=== PATIENT | male | born 1940 | race Caucasian/White ===

== ENCOUNTER 2017-12-03 22:34 | Inpatient (IN) | payer MEDICARE, BC ==
[2017-12-03 23:00] LABS: #Basophils 0.1 thou/uL (0.0-0.2); #Eosinphils 0.2 thou/uL (0.0-0.7); #Monocytes 0.6 thou/uL (0.11-0.59); #Neutrophils 6.2 thou/uL (1.40-6.50); %Basophils 0.6 % (0.0-1.0); %Eosinophils 2.1 % (0.0-10.0); %Lymphocytes 22.4 % (21.0-51.0); %Monocytes 6.1 % (0.0-10.0); %Neutrophils 68.8 % (42.0-75.0); Hemoglobin 16.4 g/dL (14.0-18.0); Mean Corpuscular HGB CONC 32.9 g/dL (32.0-36.0); Mean Corpuscular Hemoglobin 31.1 pg (27.0-31.0); Mean Corpuscular Volume 94.6 fL (78.0-98.0); Platelet Count 156 thou/uL (130-400); Red Blood Cell (RBC) Count 5.27 mill/uL (4.70-6.10)
[2017-12-03 23:25] LABS: ALT (SGPT) 22 U/L (8-55); AST (SGOT) 21 U/L (5-34); Albumin 4.4 g/dL (3.4-4.8); Alkaline Phosphatase 88 U/L (40-150); Anion Gap 12 mmol/L (10-20); BUN (Urea Nitrogen) 18 mg/dL (8.4-25.7); Bilirubin, Total 0.7 mg/dL (0.2-1.2); CK (CPK) 71 U/L (30-200); Calc. Creatinine Clearance 0 mL/min (70-130); Calcium 10.4 mg/dL (7.8-10.44); Carbon Dioxide 24 mmol/L (23-31); Chloride 108 mmol/L (98-107); Estimated GFR-MDRD 50; Globulin 3.5 g/dL (2.4-3.5); Glucose 143 mg/dL (83-110); Lipase 43 U/L (8-78); Protein, Total 7.9 g/dL (5.8-8.1); Sodium 140 mmol/L (136-145)
--- NOTE | 2017-12-03 23:26 | RAD ---
PORTABLE CHEST: HISTORY: Chest pain. COMPARISON: 10/03/2010 FINDINGS: Heart size appears borderline for portable technique. Postop sternotomy changes are seen. The lungs are clear of infiltrates. Old right clavicle fracture is seen. IMPRESSION: Borderline heart size. No acute findings. Stable examination. POS: [facility]
[2017-12-03 23:29] LABS: CKMB 2.2 ng/mL (0-6.6); Troponin I Less than 0.010 ng/mL (< 0.028)
[2017-12-04 00:59] VITALS: BMI 31.3
[2017-12-04] MEDS ORDERED: Acetaminophen 325 MG TAB PO PRN (01:26)
[2017-12-04 02:12] LABS: Troponin I 0.071 ng/mL (< 0.028)
[2017-12-04 02:13] LABS: Cardiac Risk 4.1 (Less than 4.5)
[2017-12-04] MEDS ORDERED: Nitroglycerin 0.4 MG TAB (25 Tab Bottle) SL PRN (04:03)
[2017-12-04] MEDS ORDERED: Sodium Chloride 0.9% 1,000 ML IV SCH (04:15)
[2017-12-04 04:48] LABS: Troponin I 0.179 ng/mL (< 0.028)
[2017-12-04 07:56] LABS: Troponin I 0.278 ng/mL (< 0.028)
--- NOTE | 2017-12-04 08:22 | HP ---
CHIEF COMPLAINT: Chest pain. HISTORY OF PRESENT ILLNESS: Obtained from patient. This is a 77-year-old male with past medical his tory of coronary artery disease, on Xarelto, status post stent placement; diabetes mellitus, type 2; BPH; hyperlipidemia; hypertension; presenting with chest pain and left arm pain. Per the patient, he was having left arm pain, which started at around 09:23 p.m. and patient was also feeling some disco mfort in the chest and the symptoms that he was experiencing was similar to the one that he has had i n the past when he had an HI. Therefore, the patient was worried; therefore, he came to be evaluated . On evaluating the patient, the patient stated that he does not have any pain at this time and that he does not have any chest pain, shortness of breath, palpitations, abdominal pain, nausea, vomiting. REVIEW OF SYSTEMS: All other systems have been reviewed and are negative. PAST MEDICAL HISTORY: Coronary artery disease, status post stents; diabetes mellitus, type 2; hypert ension; benign prostatic hyperplasia; hyperlipidemia. PAST SURGICAL HISTORY: Coronary artery disease, status post stents; CABG, 4 vessels; tonsillectomy. FAMILY HISTORY: Reviewed and noncontributory. SOCIAL HISTORY: Patient drinks occasionally. Denies any illicit drugs. Currently, smoked tobacco. He has been smoking for 30 years. Patient smokes daily. ALLERGIES: No known drug allergies. CURRENT MEDICATIONS: The patient is on, 1. Aspirin 81 mg. 2. Isosorbide mononitrate 60 mg. 3. Lisinopril 10 mg. 4. Metoprolol 100 mg. 5. Nitroglycerin 0.4 mg. 6. Xarelto 20 mg p.o. daily. 7. Atorvastatin 40 mg. 7. Tamsulosin 0.4 mg. PHYSICAL EXAMINATION: VITAL SIGNS: Blood pressure is 143/94, pulse is 58, respiratory rate of 18, temperature of 98.7, oxy gen saturation of 97. GENERAL: The patient is alert, oriented x3, not in acute distress, able to speak in full sentences. HEENT: Normocephalic, atraumatic. Pupils are equally round and reactive to light. Extraocular move ments are intact. No scleral icterus. No conjunctival pallor. Mucous membranes are moist. NECK: Supple. Trachea is midline. No jugular venous distention. RESPIRATORY: Clear to auscultation, no wheezing or rales. No rhonchi is appreciated. CARDIAC: Positive S1 and S2, irregularly irregular. No murmurs. ABDOMEN: Obese abdomen. Soft, nontender, nondistended. No palpable masses. EXTREMITIES: Upper extremities, the patient has 5/5 upper extremity strength 5/5, 5/5 lower extremit ies strength, no edema noted in the lower extremities. Patient to have good pulses in the upper and lower extremities bilaterally. NEUROLOGIC: Cranial nerves II-XII grossly intact. No neurologic deficit noted. SKIN: Warm, dry, and intact. EKG: A 12-lead shows normal sinus rhythm with normal axis. A chest x-ray shows cardiomegaly. ED COURSE: The patient received normal saline 500, aspirin 324, and nitro 1 inch. LABORATORY DATA: WBC 9.0, hemoglobin 16.4, hematocrit 49.8, MCV of 94.6, RDW of 13, platelet count o f 156,000. Sodium of 140, potassium is 4.0, chloride is 108, carbon dioxide of 24, anion gap of 12, BUN of 18, creatinine is 1.38, glucose of 143, AST 21, ALT 22. Troponins 0.010, second set is 0.071. BNP is 120. Cholesterol 126, triglyceride 189, lipase of 43. ASSESSMENT AND PLAN: This is a 77-year-old male with a past medical history significant for, 1. Coronary artery disease, being admitted for chest discomfort with left arm pain. At this point, we ruled out acute coronary syndrome. Troponins x2 has been elevated at 0.071. We have consulted Ca rdiology. We will start patient on aspirin. We will continue him on his Xarelto and continue beta b locker and lisinopril. We will continue to monitor the patient. 2. [id number] myocardial infarction. We will continue current management. 3. Acute kidney injury, likely due to dehydration. We will have patient on gentle hydration. We wi ll continue that every morning to the patient. 4. History of coronary artery disease. We will continue patient on current medication. 5. Deep venous thrombosis and gastrointestinal prophylaxis.
[2017-12-04] MEDS ORDERED: Aspirin 325 MG TAB PO SCH (09:00)
[2017-12-04] MEDS ORDERED: Rivaroxaban 10 MG TAB PO SCH (09:00)
[2017-12-04] MEDS: Lisinopril 10 MG TAB PO SCH ×2 (13:52→21:03)
--- NOTE | 2017-12-04 14:28 | CON ---
DATE OF CONSULTATION: 12/04/2017 HISTORY OF PRESENT ILLNESS: Connor Pena is a 77-year-old white male that I initially evaluated in January 1995 and he was referred again after an abnormal treadmill in April [address] Jett. He had PVCs for many years and in April 1991 underwent treadmill testing without chest discomfort or ST segment changes and treadmill was negative. He continued to have PVCs as well as bigeminy, but no couplets or malignant arrhythmias. In 1992, he was in [place], [place] and began to have biceps pain intermittently and then had a more pronounced episode He went to [facility] in [place], [place]. He was found to have an anterior myocardial infarction. He was started on high dose nitroglycerin and given intravenous t-PA. He apparently reperfused and had a non-Q-wave myocardial infarction. From the records, it was unclear what the peak CK was. He was transferred to [facility] in [place] and was found to have a 50-70% proximal circumflex stenosis as well as a 75-94% proximal LAD stenosis. There apparently was normal wall motion; however, the cardiac catheterization report says that the ejection fraction was 7%. Probably that was a typographical error. He underwent PTCA of the proximal LAD with reduction from 80 to 30% using a 3 mm balloon and a 7-Tamazight left 4 guide catheter. When I initially saw him in 01/1995, he had started to have left arm discomfort at rest. He underwent thallium treadmill testing exercising for 9 minutes, had no chest pain or arm pain. There were no ST segment changes. Treadmill was nondiagnostic due to failure to achieve target heart rate. There was mild evidence of reversible ischemia in the inferoseptal region on the short axis; however, this did not correlate on the horizontal axis. It was felt that his pain was probably musculoskeletal in nature. In 04/1996, he was again referred for 6 months of left arm pain when trying to go to sleep and when loading firewood which would last for 5-10 minutes and be relieved with rest. He denied any nausea, vomiting or diaphoresis. Dr. Jett performed a treadmill and he developed left arm pain at the end of stage III with [address] segment depression in II, III, F, V5 and V6. Thallium revealed evidence of anterior apical and septal ischemia. Ejection fraction was 55% with hypokinesis of the septum and apex. He underwent cardiac catheterization on 05/07/1996 and was found to have a 99% mid LAD, 80% first diagonal which was a small vessel, 50-60% proximal circumflex , 50% mid RCA, 50% distal RCA. He underwent PTCA of the 99% mid LAD lesion. It was very difficult to cross the subtotally occluded mid LAD. This was dilated. The final result was 40%. It is recommended on a daily basis that he stop smoking. In 07/1995 he was not having any symptoms. In 12/1995 he occasionally would have 1-2 minutes of left arm pain with walking for 2 months. He was placed on Imdur; however, this caused a headache. He underwent Cardiolite treadmill testing and developed left arm pain at 5 minutes and had a new left bundle branch block, but no ST segment changes. Cardiolite revealed apical and septal ischemia. He underwent repeat catheterization which revealed a 99% mid LAD stenosis with faint antegrade filling and with retrograde filling from the right coronary artery. There was an 80%, small first diagonal lesion. The circumflex had a 50% lesion which was a small vessel and then a long 50% mid RCA stenosis and 50% distal RCA stenosis. There was mild anterior hypokinesis with ejection fraction of 55%. He underwent rotablader 1.2 followed by 1.75 shemar in the mid LAD followed by placement of a GRII stent. In 12/1996, Zocor dose was increased with his LDL being 91. He tried Zyban to stop smoking; however, he is uncertain if that helped. In 01/1999, he returned for stress echo testing, exercised for 9 minutes and the test was nondiagnostic due to failure to achieve target heart rate. There was no ST segment changes. He had one 3 beat run of ventricular tachycardia. Echo revealed ejection fraction of 50-55% with normal wall motion and no evidence of stress induced ischemia. Again, he was urged to stop smoking. He returned in 07/1999 complaining of 2-3 weeks of arm pain. He was in [place] and had arm pain , he went to the emergency room there. He did not have a myocardial infarction. The pain recurred with lifting a trailer into place on a hitch and lasted 1 hour. He also complained of postprandial left sternal pain. With recurrence of what sound like his angina and known 3-vessel disease, it was recommended he undergo repeat catheterization which was performed in 08/1999. He had moderate inferobasal hypokinesis with inferior hypokinesis and ejection fraction of 45-50%. There was 60% mid LAD in-stent restenosis of the GRII stent from 10/1996. There was an apical LAD 80% stenosis, 80% proximal circumflex. There was a 99% mid RCA stenosis with the distal vessel filling retrograde from the left. Right coronary was diseased at least 50% throughout its entire course. It was felt that the vessel was too severely diseased to get a good interventional result. He was seen by Dr. Traore and was told to stop smoking for 1 month prior to undergoing bypass surgery. He was placed on Wellbutrin. One month later, he returned and underwent CABG x5 on 09/27/1999. There was a BOLANOS to the LAD, saphenous vein graft to the obtuse marginal, left radial to the Ramus piggybacked onto the obtuse marginal graft, right posterior descending graft with right posterolateral graft piggybacked onto the PDA graft. In 01/2008, he was admitted after waking at 5:00 a.m. with left arm pain. He took 2 sublingual nitroglycerins with some improvement. He was transferred to a hospital in [place] for further evaluation. He had mildly elevated MB with normal troponins and was transferred here. He underwent catheterization which revealed mild anterior hypokinesis with ejection fraction of 50-55%. The LAD had a proximal aneurysmal area with 70% mid stenosis with previous site of GRII stent placement and proximal to that an 80% stenosis. The ramus had a 60% stenosis. The circumflex had a 90% stenosis of the first obtuse marginal. Right coronary was totally occluded proximally. Bypass graft revealed occluded BOLANOS to the LAD. Saphenous vein graft to the obtuse marginal was occluded in its mid portion. The anastomosis to this was the left radial to the ramus, which was patent. The right posterior descending graft was patent and piggybacked onto this with the right posterolateral graft which also was patent. Cypher 2.5 x 15 mm stent was then placed in the mid LAD with reduction of the area from 70 to 0%. PTCA was done in the obtuse marginal which was 90% reduced to 20%. He did well until 08/2010 when he awoke at 3:00 a.m. with left arm discomfort which was similar to what he previously had with his cardiac pain. He took sublingual nitroglycerin without relief and ultimately came to the hospital. He was given topical nitrates as well as sublingual nitroglycerin and the pain immediately resolved after 6-7 hours. He underwent repeat catheterization which revealed mild anterior hypokinesis with ejection fraction of 45-50%. There was a 20% left main, 30% proximal LAD. There continued to be good results from the Cypher stent in the mid LAD. There was an 80% apical LAD lesion. The ramus had a 60% lesion. The circumflex had proximal plaquing and then an 80% lesion in the first obtuse marginal which was the site of previous PTCA. The right coronary artery was totally occluded proximally. Bypass grafts revealed the BOLANOS to be occluded as before. Saphenous vein graft to the obtuse marginal was occluded after it gave off the left radial artery to the ramus, which was piggybacked onto it. The graft to the right posterior descending was patent and piggybacked on this with a graft to the right posterolateral. He underwent PTCA of the first obtuse marginal. Due to the extreme tortuosity of the proximal circumflex, a stent could not be delivered and this basically to a PTCA alone. In 09/2010, he again presented with chest pain and it was felt that he had a non-Q-wave infarction. It was felt that he probably occluded the small first obtuse marginal and that nothing further could be done for that area. In 07/2012, he had nausea, vomiting, but no chest discomfort, shortness of breath or palpitations. Due to headache, nausea, and vomiting, he went to the [facility] and was found to be in atrial fibrillation with fast ventricular response and was started on intravenous Cardizem. He was placed on Lovenox 1 mg/kg b.i.d. and p.o. Cardizem 30 mg q.6h. in [place]. He then requested to be transferred here. He did have some pauses up to 2-3 seconds. Upon arrival here, Cardizem was discontinued. He was loaded with Multaq. Metoprolol was held due to pauses. He also been started on Xarelto in [place] and that was held and he was given Lovenox due to the possibility of needing a pacemaker. On 08/13/2012 he underwent transesophageal echo by Dr. Womack and was found to have left atrial enlargement, normal mitral and aortic valves, mild mitral regurgitation, no thrombus in the left atrium or left atrial appendage, and atherosclerotic debris in the descending aorta. He underwent electrical cardioversion with 200 joules and returned to sinus rhythm. He was observed overnight and restarted on metoprolol 50 daily. When he was seen 1-2 months later. He continued to be in sinus rhythm, but he had been having hematuria. He had been taking Xarelto and Plavix, although Plavix was not listed on the discharge medications. Xarelto was stopped at that time due to the hematuria. When he returned in 03/2013, he was found to be in atrial fibrillation. We discussed various options including repeat cardioversion, other medications, radiofrequency ablation. However, he ultimately decided for anticoagulation and rate control alone. In 05/2017, his heart rate was 44 per minute. He did not have any symptoms, metoprolol was reduced to 25 mg daily. He was last seen 09/27/2017 and did not complain of any lightheadedness, dizziness, or chest pains. He has continued to deny any lightheadedness or dizziness. Yesterday he had used a zero turn mower and cut his grass and when he came inside he began to have left arm discomfort as well as pressure and weight sensation on his chest. He took a sublingual nitroglycerin and had his bring him to the emergency room. Ultimately he took 4 sublingual nitroglycerins and the pain lasted approximately 1 hour. At the present time, he is pain free. PAST MEDICAL HISTORY: Hypercholesterolemia, diabetes, hypertension, history of gynecomastia, benign prostatic hypertrophy. OPERATIONS: CABG, herniorrhaphy, deviated septum repair, removal of throat polyp, tonsillectomy. MEDICATIONS: When he was last seen include aspirin 81 at bedtime, Xarelto 20 mg daily, atorvastatin 40 at bedtime, vitamin D3 5000 daily, vitamin B12, isosorbide mononitrate 30 daily, lisinopril 10 mg q.a.m., 1/2 of a 10 mg q.p.m. , metoprolol 25 mg daily, nitroglycerin p.r.n., Flomax 0.4 daily. ALLERGIES: None. SOCIAL HISTORY: He continues to smoke 3/4 pack per day. He occasionally drinks. FAMILY HISTORY: Negative for coronary artery disease. REVIEW OF SYSTEMS: Twelve point review of systems otherwise unremarkable. PHYSICAL EXAMINATION: VITAL SIGNS: Blood pressure 134/73, pulse of 50, atrial fibrillation. HEENT: PERRL. NECK: Supple. CHEST: Clear. CARDIAC: S1 and S2 are normal, without any S3, S4 or murmurs. Carotid upstrokes normal, without bruits. ABDOMEN: Normal bowel sounds, without tenderness or organomegaly. EXTREMITIES: Revealed no clubbing, cyanosis or edema. NEUROLOGIC: Grossly intact. SKIN: Warm and dry. LABORATORY DATA: EKG reveals atrial fibrillation with slow ventricular response and right bundle branch block. CBC is unremarkable. Sodium 140, potassium 4.0, chloride 108, carbon dioxide 24, BUN 18, creatinine 1.38. Troponin I initially is normal; however, did increase to 0.278. Cholesterol 126 , triglycerides 189, HDL 31, LDL 57. BNP 120.4. IMPRESSION: 1. Prolonged episode of chest discomfort approximately 1 hour with a slight increase in troponin I. 2. Status post coronary artery bypass graft x5 with occluded graft to the obtuse marginal and the left internal mammary artery to the left anterior descending. 3. History of Cypher stent in the mid left anterior descending which was patent in 2010. 4. Chronic atrial fibrillation. 3 second pause and Metoprolol 25 qd had been stopped. 5. Hypercholesterolemia, under good control. 6. Diabetes. 7. Hypertension. 8. The patient continues to smoke. PLAN: The situation was discussed with the patient and his . It was recommended he undergo repeat cardiac catheterization. The risks were discussed including , myocardial infarction, dye reaction, vascular injury , CVA, transfusion, limb loss, renal loss, vascular injury, etc. Risk of intervention with PTCA and stent placement were discussed including , myocardial infarction, redo CABG, restenosis, stent thrombosis, vessel perforation, etc. with need for long-term anticoagulation on Xarelto, I would only place a bare metal stent. He understands the higher restenosis rate with this. Echocardiogram will also be performed to reassess left ventricular function. LARA
[2017-12-04 14:33] LABS: Troponin I 0.269 ng/mL (< 0.028)
--- NOTE | 2017-12-04 17:04 | PDOC.PN ---
- Subjective Encounter Start Date: 12/04/17 Encounter Start Time: 17:00 Subjective: f/u for NSTEMI on current ASA/Lipitor. No new CP. Plans for C -: in am. Tele showing sinus pauses earlier this am up to 3 secs. - Objective MAR Reviewed: Yes Vital Signs & Weight: Vital Signs (12 hours) Temp Pulse Resp BP BP Pulse Ox 12/04/17 15:48 97.5 F L 51 L 15 125/67 94 L 12/04/17 13:52 134/73 12/04/17 11:48 97.4 F L 50 L 20 134/73 97 12/04/17 07:46 97.5 F L 57 L 18 135/73 95 Weight Weight 230 lb 11.2 oz I&O: 12/03/17 12/04/17 12/05/17 06:59 06:59 06:59 Intake Total 829 Output Total 925 Balance -96 Result Diagrams: 12/03/17 22:55 12/03/17 22:55 Additional Labs: Laboratory Tests 12/03/17 12/03/17 12/03/17 22:55 22:55 22:55 Creatinine 1.38 H Estimated GFR (MDRD) 50 Troponin I Less than 0.010 B-Natriuretic Peptide 120.4 H Triglycerides Cholesterol LDL Cholesterol, Calc HDL Cholesterol 12/04/17 12/04/17 12/04/17 01:20 01:20 04:20 Creatinine Estimated GFR (MDRD) Troponin I 0.071 H 0.179 H B-Natriuretic Peptide Triglycerides 189 H Cholesterol 126 LDL Cholesterol, Calc 57 HDL Cholesterol 31 12/04/17 12/04/17 07:18 13:51 Creatinine Estimated GFR (MDRD) Troponin I 0.278 H 0.269 H B-Natriuretic Peptide Triglycerides Cholesterol LDL Cholesterol, Calc HDL Cholesterol Radiology Reviewed by me: Yes (PCXR - no acute infiltrate) EKG Reviewed by me: Yes (Tele - Sinus bradycardia, sinus pauses up to 3 sec) Phys Exam - Physical Examination Constitutional: NAD HEENT: PERRLA, sclera anicteric, oral pharynx no lesions Neck: no nodes, no JVD, supple, full ROM Respiratory: no wheezing, no rales, no rhonchi, clear to auscultation bilateral Cardiovascular: RRR, no significant murmur, no rub, gallop Gastrointestinal: soft, non-tender, no distention, positive bowel sounds Musculoskeletal: no edema, pulses present Neurological: non-focal, normal sensation, moves all 4 limbs Psychiatric: normal affect, A&O x 3 Skin: no rash, normal turgor, cap refill <2 seconds Dx/Plan (1) NSTEMI (non-ST elevated myocardial infarction) Code(s): I21.4 - NON-ST ELEVATION (NSTEMI) MYOCARDIAL INFARCTION Status: Acute Comment: Plan for LHC in am, continue ASA/Lipitor, Nitrates prn (2) CAD (coronary artery disease) Code(s): I25.10 - ATHSCL HEART DISEASE OF [place] CORONARY ARTERY W/O ANG PCTRS Status: Chronic Comment: s/p CABG x 5v, repeat LHC planned in am, see #1 above (3) CKD (chronic kidney disease), stage III Code(s): N18.3 - CHRONIC KIDNEY DISEASE, STAGE 3 (MODERATE) Status: Chronic Comment: Continue IVF's, avoid nephrotoxic meds and limit contrast exposure (4) HLD (hyperlipidemia) Code(s): E78.5 - HYPERLIPIDEMIA, UNSPECIFIED Status: Chronic Comment: Continue Lipitor (5) Tobacco abuse Code(s): Z72.0 - TOBACCO USE Status: Chronic Comment: Tobacco cessation resources - Plan Stable currently -: Plan for cardiac catheterization 12/05/17 -: Continue ASA/Lipitor -: Continue Metoprolol/Lisinopril -: NPO x MN * AM lab: BMP * Convert to inpatient status
[2017-12-04] MEDS ORDERED: Aspirin 81 mg Enteric Coated Tablet PO SCH (21:00)
[2017-12-04] MEDS: Atorvastatin Calcium 40 MG TAB PO SCH (21:03)
[2017-12-04] MEDS: Tamsulosin HCl 0.4 MG CAP PO SCH (21:03)
[2017-12-05 05:09] LABS: Anion Gap 11 mmol/L (10-20); BUN (Urea Nitrogen) 17 mg/dL (8.4-25.7); Calc. Creatinine Clearance 72 mL/min (70-130); Calcium 10.1 mg/dL (7.8-10.44); Carbon Dioxide 24 mmol/L (23-31); Chloride 110 mmol/L (98-107); Estimated GFR-MDRD 55; Glucose 120 mg/dL (83-110); Potassium 4.1 mmol/L (3.5-5.1); Sodium 141 mmol/L (136-145)
[2017-12-05] MEDS: Lisinopril 10 MG TAB PO SCH ×2 (05:44→21:02)
[2017-12-05] MEDS ORDERED: Sodium Chloride 0.9% 1,000 ML IV SCH (06:00)
[2017-12-05] MEDS ORDERED: Heparin 10,000 UNITS/1 ML VIAL ONE (06:42)
[2017-12-05] MEDS ORDERED: Lidocaine 1% (PF) 30 ML VIAL ONE (06:55)
[2017-12-05] MEDS ORDERED: Midazolam HCl 2 mg/2 ml Vial ONE (07:03)
[2017-12-05] MEDS ORDERED: Fentanyl 100 MCG/2 ML VIAL ONE (07:03)
[2017-12-05] MEDS ORDERED: Protamine Sulfate 50 MG/5 ML VIAL ONE (07:47)
[2017-12-05] MEDS ORDERED: Bivalirudin 250 MG VIAL ONE (07:52)
[2017-12-05] MEDS ORDERED: Clopidogrel Bisulfate 300 MG TAB ONE (08:03)
[2017-12-05] MEDS ORDERED: Adenosine 6 MG/2 ML VIAL ONE (08:22)
[2017-12-05] MEDS: Sodium Chloride 0.9% 1,000 ML IV SCH ×2 (09:49→13:42)
[2017-12-05] MEDS ORDERED: Ondansetron HCl/PF 4 MG/2 ML Vial ONE (12:12)
[2017-12-05] MEDS: Clopidogrel Bisulfate 75 MG TAB PO SCH (13:42)
[2017-12-05] MEDS ORDERED: Iopamidol 370 76% 50 ML VIAL FS ONE (15:12)
[2017-12-05] MEDS ORDERED: Iopamidol 370 76% 100 ML VIAL ONE (15:12)
--- NOTE | 2017-12-05 15:40 | EKG ---
Test Reason : POST STENT Blood Pressure : / mmHG Vent. Rate : 082 BPM Atrial Rate : 394 BPM P-R Int : 000 ms QRS Dur : 152 ms QT Int : 428 ms P-R-T Axes : 000 -30 072 degrees QTc Int : 500 ms Atrial fibrillation Left axis deviation Right bundle branch block Cannot rule out Inferior infarct , age undetermined Abnormal ECG When compared with ECG of 03-DEC-2017 22:39, (Unconfirmed) Vent. rate has increased BY 31 BPM QT has lengthened Confirmed by ADE BERNARD, DR. Tatum ([id number]) on 12/05/2017 3:40:07 PM Referred By: MEGAN Confirmed By:DR. Rc BOOKER MD
[2017-12-05] MEDS ORDERED: Mag-Al 1200 mg/1200 mg/30 ML UDCUP PO PRN (16:24)
[2017-12-05] MEDS ORDERED: Ondansetron HCl/PF 4 MG/2 ML Vial IVP PRN (16:25)
--- NOTE | 2017-12-05 16:27 | PDOC.PN ---
- Subjective Encounter Start Date: 12/05/17 Encounter Start Time: 16:20 Subjective: f/u for NSTEMI s/p LHC with BMS placement to OM. c/o some indigestion -: post-cath. - Objective MAR Reviewed: Yes Vital Signs & Weight: Vital Signs (12 hours) Temp Pulse Resp BP BP Pulse Ox 12/05/17 16:03 98 F 12/05/17 16:00 97.4 F L 88 18 132/92 H 93 L 12/05/17 05:44 132/79 Weight Weight 227 lb I&O: 12/04/17 12/05/17 12/06/17 06:59 06:59 06:59 Intake Total 1689 565 Output Total 1550 500 Balance 139 65 Result Diagrams: 12/03/17 22:55 12/05/17 04:24 Additional Labs: Laboratory Tests 12/03/17 12/03/17 12/03/17 22:55 22:55 22:55 Creatinine 1.38 H Estimated GFR (MDRD) 50 Troponin I Less than 0.010 B-Natriuretic Peptide 120.4 H Triglycerides Cholesterol LDL Cholesterol, Calc HDL Cholesterol 12/04/17 12/04/17 12/04/17 01:20 01:20 04:20 Creatinine Estimated GFR (MDRD) Troponin I 0.071 H 0.179 H B-Natriuretic Peptide Triglycerides 189 H Cholesterol 126 LDL Cholesterol, Calc 57 HDL Cholesterol 31 12/04/17 12/04/17 07:18 13:51 Creatinine Estimated GFR (MDRD) Troponin I 0.278 H 0.269 H B-Natriuretic Peptide Triglycerides Cholesterol LDL Cholesterol, Calc HDL Cholesterol Radiology Reviewed by me: Yes (2D echo - EF 45-50%) EKG Reviewed by me: Yes (Tele - A-fib in 80's) Phys Exam - Physical Examination Constitutional: NAD HEENT: PERRLA, sclera anicteric, oral pharynx no lesions Neck: no nodes, no JVD, supple, full ROM Respiratory: no wheezing, no rales, no rhonchi, clear to auscultation bilateral S1, S2 Cardiovascular: no significant murmur, no rub, irregular Gastrointestinal: soft, non-tender, no distention, positive bowel sounds Musculoskeletal: no edema, pulses present Neurological: normal sensation, moves all 4 limbs Psychiatric: A&O x 3 Skin: no rash, normal turgor, cap refill <2 seconds Dx/Plan (1) NSTEMI (non-ST elevated myocardial infarction) Code(s): I21.4 - NON-ST ELEVATION (NSTEMI) MYOCARDIAL INFARCTION Status: Acute Comment: s/p BMS to OM, dual anti-platelet therapy, Lipitor (2) CAD (coronary artery disease) Code(s): I25.10 - ATHSCL HEART DISEASE OF [place] CORONARY ARTERY W/O ANG PCTRS Status: Chronic Comment: s/p CABG x 5v, s/p BMS OM, 3 of 5 grafts patent, ASA/Plavix (3) CKD (chronic kidney disease), stage III Code(s): N18.3 - CHRONIC KIDNEY DISEASE, STAGE 3 (MODERATE) Status: Chronic Comment: Continue IVF's, avoid nephrotoxic meds and limit contrast exposure (4) HLD (hyperlipidemia) Code(s): E78.5 - HYPERLIPIDEMIA, UNSPECIFIED Status: Chronic Comment: Continue Lipitor (5) Tobacco abuse Code(s): Z72.0 - TOBACCO USE Status: Chronic Comment: Tobacco cessation resources - Plan out of bed/ambulate, DVT proph w/SCDs Stable currently -: Dual anti-platelet therapy with Plavix x 1 month -: Continue Ranexa -: OOB/ambulate -: Tobacco cessation * Maalox prn * Am lab: CBC, CMP
--- NOTE | 2017-12-05 19:24 | CCL ---
INDICATION: Prolonged chest pain. Known coronary artery disease. Slight increase in Troponin I. PROCEDURE: 1. Left heart catheterization. 2. Selective coronary arteriography. 3. Left ventriculography. 4. Bypass graft angiography. 5. Stent placement in the ramus (obtuse marginal) graft. Patient was brought to cardiac pharmacy laboratory technician and right groin was prepped and draped in usual fashion. Fentanyl 25 mg given IV as well as Versed 1 mg IV for moderate conscious sedation. Using ultrasound, a 6-Afghan sheath placed into the right femoral artery. Heparin 3000 units given. A Afghan angulated pigtail was inserted and pressures were obtained. Left ventriculogram was performed using 30 mL of contrast at 12 mL per second in an HWANG 30 degree projection. Pressures were obtained. Pigtail was removed. A 6-Afghan Scarlet left 4 followed by 6-Afghan Scarlet right 4 was used for coronary arteriography. The right 4 was used to opacify the ramus graft. The right 4 was removed and a 6-Afghan multipurpose was inserted to opacified the right coronary artery grafts. Angiomax bolus and drip were started. The patient was given 600 mg Plavix. A 6 -Afghan Scarlet right 4 guide catheter was inserted and a filter wire was placed into the ramus graft. Rebel 3.0 x 12 mm stent was then positioned and deployed. This was postdilated with a 3.5 x 8 mm NC Emerge balloon. There was OUMAR 1 flow after this. Adenosine 30 mcg and then 20 mcg was given with methodist of OUMAR 3 flow. The filter wire was secured, and removed. Final contrast injection showed excellent result. Sheath was sutured in place. Patient was transferred to PCU. RESULTS: PRESSURES: A aorta 125/79, mean 101. Left ventricle 118/5. LEFT VENTRICULOGRAM: There was mild anterior hypokinesis with ejection fraction of 55-60%. CORONARY ARTERIOGRAPHY: 1. Left main had 20% stenosis. 2. The LAD had a 20% mid LAD in-stent restenosis. There was a 60% and 80% apical LAD, 70% diagonal stenosis. 3. The ramus was totally occluded. 4. The circumflex had a 30% stenosis at the site in August 2010 PTCA. 5. Right coronary was totally occluded proximally. The mid right coronary artery filled retrograde from the left. BYPASS GRAFTS 1. The BOLANOS to the LAD was occluded (old). 2. The obtuse marginal graft was occluded distal to the ramus graft that was piggybacked onto it. There was a 70% proximal lesion. 3. The left radial artery ramus graft which was piggybacked onto the obtuse marginal graft was patent. 4. Right posterior descending graft onto the right coronary artery was patent with very small distal vessels. 5. Right posterolateral graft piggybacked onto the right posterior descending artery graft and was patent. INTERVENTION: The initial lesion was 70%. Final lesion was 0%. IMPRESSION: 1. Three-vessel coronary artery disease. 2. Three of five grafts patent. 3. Mild left ventricular dysfunction. 4. Successful bare metal stent placement in an obtuse marginal graft that had the ramus graft piggybacked onto it. [facility]
[2017-12-05] MEDS: Atorvastatin Calcium 40 MG TAB PO SCH (21:01)
[2017-12-05] MEDS: Tamsulosin HCl 0.4 MG CAP PO SCH (21:02)
[2017-12-06 05:07] LABS: #Eosinphils 0.2 thou/uL (0.0-0.7); #Lymphocytes 1.5 thou/uL (1.20-3.40); #Monocytes 0.6 thou/uL (0.11-0.59); #Neutrophils 6.1 thou/uL (1.40-6.50); %Basophils 0.5 % (0.0-1.0); %Lymphocytes 17.8 % (21.0-51.0); %Monocytes 7.1 % (0.0-10.0); %Neutrophils 72.6 % (42.0-75.0); Hemoglobin 14.6 g/dL (14.0-18.0); Mean Corpuscular Hemoglobin 31.2 pg (27.0-31.0); Mean Corpuscular Volume 94.7 fL (78.0-98.0); Mean Platelet Volume 8.1 fL (7.4-10.4); Platelet Count 126 thou/uL (130-400); RBC Distribution Width 12.7 % (11.5-14.5); Red Blood Cell (RBC) Count 4.69 mill/uL (4.70-6.10); White Blood Cell (WBC) Count 8.4 thou/uL (4.8-10.8)
[2017-12-06 05:30] LABS: ALT (SGPT) 13 U/L (8-55); AST (SGOT) 16 U/L (5-34); Albumin 3.7 g/dL (3.4-4.8); Alkaline Phosphatase 79 U/L (40-150); Anion Gap 11 mmol/L (10-20); BUN (Urea Nitrogen) 16 mg/dL (8.4-25.7); Calc. Creatinine Clearance 72 mL/min (70-130); Calcium 9.4 mg/dL (7.8-10.44); Carbon Dioxide 24 mmol/L (23-31); Chloride 110 mmol/L (98-107); Estimated GFR-MDRD 55; Globulin 2.6 g/dL (2.4-3.5); Glucose 98 mg/dL (83-110); Potassium 3.9 mmol/L (3.5-5.1); Protein, Total 6.3 g/dL (5.8-8.1); Sodium 141 mmol/L (136-145)
[2017-12-06 07:52] VITALS: TEMP 97.8
[2017-12-06] MEDS: Lisinopril 10 MG TAB PO SCH (08:29)
[2017-12-06 08:30] VITALS: BP 132/71
[2017-12-06] MEDS: Clopidogrel Bisulfate 75 MG TAB PO SCH (08:30)
--- NOTE | 2017-12-06 12:51 | DIS ---
DATE OF ADMISSION: 12/04/2017 DATE OF DISCHARGE: 12/06/2017 DISCHARGE DIAGNOSES: 1. Non-ST elevation myocardial infarction. 2. Status post bare metal stent to the obtuse marginal 12/05/2017. 3. Coronary artery disease with patent 3 of 5 grafts by left heart catheterization. 4. Chronic atrial fibrillation on anticoagulation with Xarelto. 5. Chronic kidney disease stage 3. 6. Hyperlipidemia. 7. Tobacco abuse. CONSULTATIONS: Dr. Oro with Cardiology Service. PERTINENT LABORATORY AND X-RAY FINDINGS: Troponin I ranged between 0.010-0.278. BNP 120. Total cho lesterol 126, triglycerides 189, HDL 31, LDL 57, lipase 43. CBC within normal limits. Left heart catheterization dated 12/05/2017 showed 3-vessel coronary artery disease with 3 of 5 paten t grafts. Successful PCI with bare metal stent placement to the proximal obtuse marginal graft. HOSPITAL COURSE: The patient was admitted to the telemetry unit after initially presenting with ches t pain in the context of known coronary artery disease status post coronary artery bypass grafting. The patient underwent serial cardiac enzyme evaluation showing an increasing trend, confirming eviden ce of non-ST elevation myocardial infarction. The patient was evaluated by the Cardiology Service wi recommendations for a left heart catheterization. The patient underwent the procedure on 12/06/19 18 showing patent 3 of 5 grafts; however, the patient did undergo a percutaneous coronary interventio n with placement of a bare metal stent to the proximal segment of the obtuse marginal graft. The pat ient tolerated the procedure well and postoperatively remained clinically stable with telemetry monit oring showing chronic atrial fibrillation with controlled rate. The patient was initiated on Plavix with recommendations to continue for 1 month after discharge. The patient also initiated on Ranexa a nd will resume Xarelto on 12/09/2017. Overall, the patient remained clinically stable, ambulating wi thout assistance or difficulty, tolerating regular oral intake with stable vital signs. I have exami prasad the patient at the time of discharge and discussed followup instructions. The patient overall c linically stable and ready for discharge on 12/06/2017. DISCHARGE MEDICATIONS: 1. Lipitor 40 mg p.o. at bedtime. 2. Vitamin D3 5000 units p.o. daily. 3. Vitamin B12 1000 mcg every month. 4. Vitamin B12 1000 mcg p.o. daily. 5. Isosorbide mononitrate 30 mg p.o. daily. 6. Lisinopril 10 mg p.o. b.i.d. 7. Nitroglycerin 0.4 mg sublingually every 5 minutes p.r.n. chest pain. 8. Flomax 0.4 mg p.o. at bedtime. 9. Enteric coated aspirin 81 mg 1 tab p.o. daily. 10. Plavix 75 mg 1 tab p.o. daily. 11. Ranexa 500 mg p.o. b.i.d. x1 week, followed by 1000 mg p.o. b.i.d. 12. Xarelto 20 mg p.o. daily, resume on 12/09/2017. FOLLOWUP: Patient will follow up with his primary care provider, Dr. Preet Jett within 7 days of discharge. The patient will follow up with Dr. Christopher Oro with [facility] and to call his office for appointment time and date. CONDITION ON DISCHARGE: Stable. ACTIVITY: Ad sunni. DIET: Heart healthy. CODE STATUS: Full. DISPOSITION: Home on 12/06/2017.
--- NOTE | 2017-12-06 16:42 | EKG ---
Test Reason : Blood Pressure : / mmHG Vent. Rate : 076 BPM Atrial Rate : 416 BPM P-R Int : 000 ms QRS Dur : 152 ms QT Int : 440 ms P-R-T Axes : 000 -21 032 degrees QTc Int : 495 ms Atrial fibrillation Right bundle branch block Abnormal ECG When compared with ECG of 05-DEC-2017 09:50, No significant change was found Confirmed by ADE BERNARD, DR. Tatum ([id number]) on 12/06/2017 4:42:44 PM Referred By: MEGAN Confirmed By:DR. Rc BOOKER MD
== END 2017-12-06 10:11 | disposition home or self-care (01) | DRG 249 ==
LOC: ERS 22:34 → 2SW 12-04 00:29 → OBSVTOIN 12-04 14:05
PROVIDERS: ADMIT Internal Medicine; ATTEND Internal Medicine
PROC: 02703DZ Dilation of Coronary Artery, One Artery with Intraluminal Device, Percutaneous Approach (ICD-10-PCS; principal; 2017-12-05)
PROC: 4A023N7 Measurement of Cardiac Sampling and Pressure, Left Heart, Percutaneous Approach (ICD-10-PCS; 2017-12-05)
PROC: B2111ZZ Fluoroscopy of Multiple Coronary Arteries using Low Osmolar Contrast (ICD-10-PCS; 2017-12-05)
PROC: B2151ZZ Fluoroscopy of Left Heart using Low Osmolar Contrast (ICD-10-PCS; 2017-12-05)
PROC: B2121ZZ Fluoroscopy of Single Coronary Artery Bypass Graft using Low Osmolar Contrast (ICD-10-PCS; 2017-12-05)
DX: I21.4 Non-ST elevation (NSTEMI) myocardial infarction (principal); N17.9 Acute kidney failure, unspecified; I25.10 Atherosclerotic heart disease of native coronary artery without angina pectoris; Z95.1 Presence of aortocoronary bypass graft; N18.3 Chronic kidney disease, stage 3 (moderate); E78.5 Hyperlipidemia, unspecified; F17.210 Nicotine dependence, cigarettes, uncomplicated; Z95.5 Presence of coronary angioplasty implant and graft; E66.9 Obesity, unspecified; Z68.31 Body mass index [BMI] 31.0-31.9, adult; I25.2 Old myocardial infarction; I12.9 Hypertensive chronic kidney disease with stage 1 through stage 4 chronic kidney disease, or unspecified chronic kidney disease; E11.22 Type 2 diabetes mellitus with diabetic chronic kidney disease; N40.0 Benign prostatic hyperplasia without lower urinary tract symptoms; E86.0 Dehydration; I48.2 Chronic atrial fibrillation; Z79.01 Long term (current) use of anticoagulants
CPT/HCPCS: 36415; 71045; 76942; 80048; 80053; 80061; 82550; 82553; 83690; 83880; 84484; 85025; 85347; 92928; 93005; 93010; 93306; 93459; 93798; 94640; 96360; 99152; 99153; C1769; C1876; C1887; J0153; J0583; J1644; J2001; J2250; J2405; J2720; J3010; J7620

== ENCOUNTER 2017-12-31 11:45 | Inpatient (IN) | payer MEDICARE, BC ==
[~2017-12-31 11:45] MED LIST: PHENYLEPHRINE-NS 100 MCG/ML 10 ML SYRINGE ONE; PROPOFOL 200 MG/20 ML VIAL ONE; Succinylcholine Chloride 20 MG/ML 10 ml SYRINGE FS ONE; ePHEDrine/0.9% NaCl/PF SYRINGE 50 mg/10 ml ONE
[2017-12-31] MEDS ORDERED: Ondansetron PF 4 MG/2 ML Vial ONE (12:29)
[2017-12-31 12:32] LABS: #Eosinphils 0.1 thou/uL (0.0-0.7); #Lymphocytes 1.8 thou/uL (1.20-3.40); #Monocytes 0.9 thou/uL (0.11-0.59); #Neutrophils 14.5 thou/uL (1.40-6.50); %Basophils 0.2 % (0.0-1.0); %Eosinophils 0.7 % (0.0-10.0); %Lymphocytes 10.5 % (21.0-51.0); %Monocytes 5.2 % (0.0-10.0); %Neutrophils 83.3 % (42.0-75.0); Hemoglobin 11.1 g/dL (14.0-18.0); Mean Corpuscular HGB CONC 34.1 g/dL (32.0-36.0); Mean Corpuscular Hemoglobin 32.2 pg (27.0-31.0); Mean Corpuscular Volume 94.5 fL (78.0-98.0); Mean Platelet Volume 8.2 fL (7.4-10.4); Platelet Count 174 thou/uL (130-400); RBC Distribution Width 13.2 % (11.5-14.5); Red Blood Cell (RBC) Count 3.45 mill/uL (4.70-6.10); White Blood Cell (WBC) Count 17.4 thou/uL (4.8-10.8)
[2017-12-31 12:40] LABS: INR-International Normal Ratio 1.8; Prothrombin Time 21.1 SEC (12.0-14.7)
[2017-12-31] MEDS ORDERED: Pantoprazole 80 MG in Sodium Chloride 0.9% 100 ML IVP SCH (12:45)
[2017-12-31] MEDS ORDERED: Octreotide Acetate 1,250 MCG in Sodium Chloride 0.9% 250 ML 250 ML IVPB SCH (12:45)
[2017-12-31 12:53] LABS: ALT (SGPT) 17 U/L (8-55); AST (SGOT) 16 U/L (5-34); Albumin 3.7 g/dL (3.4-4.8); Alkaline Phosphatase 57 U/L (40-150); Anion Gap 14 mmol/L (10-20); BUN (Urea Nitrogen) 72 mg/dL (8.4-25.7); Bilirubin, Total 0.8 mg/dL (0.2-1.2); Calc. Creatinine Clearance 0 mL/min (70-130); Calcium 9.4 mg/dL (7.8-10.44); Carbon Dioxide 21 mmol/L (23-31); Chloride 110 mmol/L (98-107); Estimated GFR-MDRD 30; Globulin 2.4 g/dL (2.4-3.5); Glucose 176 mg/dL (83-110); Protein, Total 6.1 g/dL (5.8-8.1); Sodium 140 mmol/L (136-145)
[2017-12-31 12:58] LABS: CKMB 1.8 ng/mL (0-6.6); Troponin I Less than 0.010 ng/mL (< 0.028)
[2017-12-31] MEDS ORDERED: Pantoprazole 40 MG VIAL ONE (13:03)
--- NOTE | 2017-12-31 14:22 | RAD ---
ONE VIEW CHEST: COMPARISON: 12/03/2017. HISTORY: GI bleed. FINDINGS: There are sternotomy wires and atherosclerosis of the aorta. The heart is enlarged. The pulmonary v essels are within normal limits. Left-sided pleural effusion is suspected. Adequate aeration of the left and right lung. No pneumothorax. Chronic changes in the right clavicle. Sternotomy wires are noted. IMPRESSION: 1. Nasogastric tube, extending beyond the diaphragm. Distal tip is not seen. 2. Small left-sided effusion. POS: LUCIA
[2017-12-31] MEDS ORDERED: Promethazine HCl 25 MG/ML VIAL IM PRN (15:36)
[2017-12-31] MEDS ORDERED: Promethazine HCl 25 MG/ML VIAL SLOW IVP PRN (15:36)
[2017-12-31] MEDS ORDERED: Ondansetron HCl/PF 4 MG/2 ML Vial IVP PRN (15:36)
--- NOTE | 2017-12-31 15:57 | CON ---
DATE OF CONSULTATION: 12/31/2017 REQUESTING PHYSICIAN: Hugh Dc DO. REASON FOR CONSULTATION: GI bleeding. HISTORY OF PRESENT ILLNESS: Connor Pena is a very pleasant 77-year-old man previously seen by my GI colleague, Dr. Silverio Briggs. He has had a few surveillance colonoscopies. His last colonoscopy in 2014 showed left-sided diverticulosis and a couple of benign polyps, which were removed. Mr. Fartun hays has a strong history of severe coronary artery disease, status post CABG in the past. He has al so had multiple percutaneous interventions. He was recently hospitalized here at the end of last mon with a non-ST elevation myocardial infarction and he underwent bare metal stent placement x1. He was started on Plavix. This is in addition to the aspirin and Xarelto he was already on for his atri al fibrillation. Notably, he continues to smoke tobacco. He has no prior history of other gastroint estinal illness. No known history of peptic ulcer disease or GI bleeding. 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 He does not take any nonsteroidal anti-inflammatory drugs. Yesterday afternoon, he started feeling a little bit nauseated, dizzy and lightheaded. He had to leave a [employer] event early to go lie down. When he got up in the middle of the night to try to go to the [facility], he was quite weak and he ended up falling at home, though he did not injure himself. He had some bowel movements the past couple of days which were black in color and then earlier this morning at [facility], he started vomiting. He has been vomiting blackish coffee-ground material several times since . Upon presentation to the emergency department, blood pressure was 89/60 and he was mildly tachyc ardic. With fluid resuscitation, he is hemodynamically stable. Nasogastric tube was placed and has suctioned out over a liter of dark black/reddish material already. He was placed on Protonix and oct reotide drips. He denies any abdominal pain through all of this. No chest pain. Troponin is negati ve. REVIEW OF SYSTEMS: Full review of systems including constitutional, head, eyes, ears, nose, throat, GI, , cardiovascular, respiratory, musculoskeletal, and neurologic systems is negative except as no reji in the HPI. PAST MEDICAL HISTORY: 1. Coronary artery disease with multiple percutaneous interventions including bare metal stent place ment on 12/05/2017. 2. Coronary artery bypass graft. 3. Atrial fibrillation, on Xarelto. 4. Chronic kidney disease stage 3. 5. Benign prostatic hypertrophy. 6. Hyperlipidemia. 7. Diabetes. 8. Ongoing tobacco abuse. 9. Hernia repair. 10. Colon polyps, with last colonoscopy in 2014. 11. Sigmoid diverticulosis. ALLERGIES: No known drug allergies. OUTPATIENT MEDICATIONS: Aspirin 81 mg daily, Plavix 75 mg daily, isosorbide mononitrate, lisinopril, atorvastatin, tamsulosin, Protonix 20 mg daily, vitamin D3 1000 units daily, Ranexa, and vitamin B12 . SOCIAL HISTORY: Continues to smoke tobacco 3/4 pack a day. Alcohol use is occasional. FAMILY HISTORY: Negative for gastrointestinal illness or malignancy. PHYSICAL EXAMINATION: VITAL SIGNS: Blood pressure 90/61, pulse 91, 94% oxygen saturation on room air. GENERAL: A 77-year-old man lying in bed comfortably, in no acute distress. SKIN: He is a bit pale, no jaundice, no rashes were palpable. EYES: No scleral icterus. Extraocular movements intact. ENT: Mucous membranes moist. He has a nasogastric tube in the right naris suctioning out black coff ee-ground material. HEART: Regular rate and rhythm. LUNGS: Clear to auscultation bilaterally. ABDOMEN: Bowel sounds present, soft and nontender to palpation throughout. EXTREMITIES: No peripheral edema. LYMPH: No submandibular or supraclavicular lymphadenopathy. THYROID: Nontender to palpation. VESSELS: Radial pulses 2+ bilaterally. NEUROLOGICAL: Cranial nerves II-XII intact bilaterally. No focal deficits. LABORATORY STUDIES: Hemoglobin is 11.1, this is a decline from 14.6 when he was here just a few week s ago. INR is 1.8. WBC 17.4, platelets 174. BUN up to 72, creatinine up to 2.17. Sodium 140, pota ssium 5.0, glucose 176. LFTs normal with total bilirubin 0.8, alkaline phosphatase 57, AST 16, ALT 1 7, albumin 3.7. ASSESSMENT AND PLAN: 1. Hematemesis. 2. Acute blood loss anemia. 3. Acute kidney injury. 4. Atrial fibrillation, on Xarelto. 5. Coronary artery disease with recent bare metal stent placement, on Plavix as well. The patient's presentation is consistent with acute gastrointestinal bleeding over the past day. At this point, he remains hemodynamically stable. Though blood pressures are a bit soft, I agree with a ggressive resuscitation as you are doing. Monitor the H&H and transfuse as needed. Continue with th e Protonix drip. The octreotide drip is okay for now as well, though note he has no history of liver disease. We will plan for urgent upper endoscopy this afternoon for diagnostic and possibly therape utic purposes. I would hold his Xarelto for now. Regarding the Plavix, from a bleeding standpoint, it would be best if this were held as well, but would seek a Cardiology opinion on this given his rec ent bare metal stent placement. Further recommendations following EGD.
[2017-12-31 16:14] VITALS: BMI 31.4
--- NOTE | 2017-12-31 16:39 | OP ---
DATE OF SERVICE: 12/31/2017 GI ENDOSCOPY NOTE SURGEON: Eliel Wagner M.D. MEDICAL DELIVERY TECHNICIAN SURGEON: None. PROCEDURE: Esophagogastroduodenoscopy, diagnostic. INDICATIONS: 1. Hematemesis. 2. Acute blood loss anemia. MEDICATIONS: See anesthesia record. FINDINGS: After discussion of the risks, benefits and alternatives of the procedure, informed consen t was obtained and witnessed. Pre-endoscopic cardiopulmonary examination was satisfactory. Timeout was performed before sedation was achieved. Sedation was achieved with anesthesia assistance in the endoscopy unit. DESCRIPTION OF PROCEDURE: The patient was endotracheally intubated under general anesthesia for airw ay protection. A Pentax adult therapeutic upper endoscope was placed into the oropharynx and passed through the cricopharyngeus under direct visualization. The proximal and mid esophageal mucosa appea red normal. In the distal esophagus, there were a few shallow linear erosions with some mild active oozing of blood. This may just represent recent nasogastric tube trauma. This oozing had resolved b y the end of the procedure. There were no esophageal varices. The esophagus was otherwise normal. The endoscope was then advanced into the stomach. Forward and retroflexed views of the gastric mucos a were obtained. There is a large amount of old blood clots and food particles filling up the fundus of the stomach. Visualization was extremely difficult. I spent over 45 minutes in attempting to co mpletely clear the stomach, including the gastric fundus. In the end, I was able to get a good exami nation of the gastric antrum and body as well as the duodenum. The mucosa of the gastric body, antru m, and duodenum appeared normal. There was no red blood or active bleeding noted in the stomach duri ng the entire exam, just a lot of old blood clots and food particles. Despite on my efforts with irr igation and suctioning, I was unable to completely clear the gastric fundus for examination. I was a ble to get a good look at the GE junction area. There is no evidence of any gastric varices. I was unable to locate any other bleeding lesion, again within the limitations of being unable to completel y clear the gastric fundus. At the end of the procedure, there were still some minimal blood clots a s well as a lot of particulate food matter left within the gastric fundus. The endoscope was complet manuela withdrawn and the procedure was completed. The patient tolerated the procedure well. There were no immediate post-procedure complications. IMPRESSION: 1. Copious amount of old blood clots and food particles filling the gastric fundus. Unable to compl etely clear the gastric fundus. Normal examination of the gastric body, antrum and first portion of the duodenum. 2. No red blood or actively bleeding lesion noted on this exam. 3. Couple of shallow linear erosions at the GE junction, slowly oozing blood. This may just represe nt nasogastric tube trauma. 4. No esophageal or gastric varices. RECOMMENDATIONS: 1. Continue the PPI drip. 2. Remain n.p.o. for now. 3. Close monitoring, trend H&H and transfuse if needed. 4. I would avoid nasogastric tube placement. 5. Hold Xarelto. Hold Plavix as well if okay with Cardiology. 6. We will probably set him up for a second look upper endoscopy in the next couple of days.
[2017-12-31] MEDS: Sodium Chloride 0.9% 1,000 ML IV SCH (16:59)
[2017-12-31] MEDS ORDERED: HumaLOG 300 UNITS/3 ML VIAL SC PRN (17:12)
[2017-12-31] MEDS ORDERED: Dextrose 5% in Water 1,000 ML IV PRN (17:12)
[2017-12-31] MEDS ORDERED: Dextrose 50% Abboject 50 ML SYRINGE SLOW IVP PRN (17:12)
[2017-12-31 17:23] LABS: Hemoglobin 10.8 g/dL (14.0-18.0)
--- NOTE | 2017-12-31 17:28 | HP ---
PRIMARY CARE PROVIDER: Preet Jett M.D. CHIEF COMPLAINT: Vomiting blood. HISTORY OF PRESENT ILLNESS: Mr. Pena is a pleasant 77-year-old gentleman who was seen at [facility] on 12/31/2017. He was hospitalized here from 12/04/2017-12/06/2017 for non-ST elevation myocardial infarction. Carlos A ng that hospitalization, he had a bare metal stent placed to the obtuse marginal on 12/05/2017. He w as discharged home on Plavix 75 mg daily, Xarelto 20 mg daily and enteric coated aspirin 81 mg daily. He reports that he noticed dark stools following discharge. However, he was otherwise asymptomatic. He was at his grandson's wedding yesterday when he started feeling weak. He woke up around 6:00 tod ay morning. He felt lightheaded and woozy was. When he tried to walk, he was hanging onto the [place] . He vomited twice, then went back to bed, fell asleep with CPAP. He was reportedly clammy at that time. Around 10:00 a.m., he had a bowel movement. He then fell, but did not hit his head. He vomit ed "coffee ground and 2 cups of blood." He reports decreased appetite following discharge. He also reports shortness of breath with exertion. He was referred for admission to Hospitalist Service. However, he went for endoscopy from emergency room and I saw him in the Critical Care Unit following an endoscopy. REVIEW OF SYSTEMS: All other systems reviewed and found to be negative. PAST MEDICAL HISTORY: Coronary artery disease, status post PCI with stents, status post coronary art jorge bypass graft, diabetes mellitus type 2, hypertension, benign prostatic hyperplasia, dyslipidemia and atrial fibrillation. PAST SURGICAL HISTORY: Coronary artery bypass graft, tonsillectomy and PCI with stents. FAMILY HISTORY: Patient denies any family history of premature coronary artery disease. SOCIAL HISTORY: Occasional alcohol use, current tobacco use and no recreational drug use. ALLERGIES: No known drug allergies. CURRENT MEDICATIONS: Aspirin 81 mg daily, isosorbide mononitrate 60 mg daily, lisinopril 10 mg daily , atorvastatin 40 mg daily, tamsulosin 0.4 mg daily, Protonix 20 mg daily, vitamin D3 1000 units yahir y, Plavix 75 mg daily, Ranexa 500 mg daily and vitamin B12 1 tablet daily. PHYSICAL EXAMINATION: GENERAL: On examination, Mr. Pena is awake and alert, not in acute distress. He is obese, with B WI of 31.4. VITAL SIGNS: Blood pressure is 117/89, pulse 95, respiratory rate 17 and oxygen saturation 98% on ro om air. In the emergency room, his blood pressure dropped to 93/57 at 12:45 hours today. He is afeb rile. EYES: No scleral icterus. No conjunctival pallor. ENT: Moist mucosal membranes, no oropharyngeal erythema or exudates. NECK: Supple, nontender, trachea is midline. RESPIRATORY: Accessory muscles of breathing are not active. Chest wall movements are symmetric bila terally. LUNGS: Clear to auscultation, without wheeze, rhonchi or crepitations. CARDIOVASCULAR: S1 and S2 are heard, irregular. Peripheral pulses palpable. No carotid bruit, no p ericardial rub. ABDOMEN: Soft, nontender, bowel sounds heard, no hepatomegaly, no splenomegaly. NEUROLOGIC: Cranial nerves II-XII intact. Deep tendon reflexes are 2+. MUSCULOSKELETAL: Power is 5/5 in all 4 extremities. SKIN: No rashes or subcutaneous nodules. LYMPHATIC: No cervical lymphadenopathy. PSYCHIATRIC: Normal mood, normal affect, patient is oriented to person, place, and time. IMAGING DATA AND LABORATORY DATA: Mr. Pena's labs and investigations were reviewed. I reviewed h is electrocardiogram, which shows atrial fibrillation, no ST changes to suggest an acute coronary syn drome. He has right bundle branch block. I also reviewed his chest x-ray, which does not show any p ulmonary infiltrates. He has a nasogastric tube. He has elevated white count of 17,400, normocytic anemia with hemoglobin 11.1, last known hemoglobin 14.6 on 12/06/2017, normal platelet count, INR 1.8 , normal sodium, normal potassium, elevated blood urea nitrogen of 72, elevated creatinine of 2.17, l ast known creatinine 1.27 on 12/06/2017 and an unremarkable liver profile. ASSESSMENT AND PLAN: Mr. Pena is a pleasant 77-year-old gentleman who was seen at [facility] on 12/31/2017. His problem list includes: 1. Acute blood loss anemia: Mr. Pena is presenting with acute blood loss anemia secondary to upp er gastrointestinal bleed. He will be admitted to the hospital for further management. We will rech shaggy his hemoglobin and hematocrit and transfuse as needed. 2. Upper gastrointestinal bleed: Patient's clinical presentation is consistent with upper gastroint estinal bleed. He already had endoscopy and he was found to have copious amount of old blood clots a nd food particles filling the gastric fundus. No red blood or actively bleeding lesion was seen. He had a couple of shallow linear erosions at the GE junction, slowly oozing blood. He did not have es ophageal or gastric varices. We will continue PPI drip. They will hold Xarelto. Cardiology Service will be consulted for opinion regarding Plavix and aspirin. 3. Dyslipidemia: Continue statin. 4. Hypertension: Hold antihypertensives for now, reassess in the morning. 5. Diabetes mellitus type 2: Patient's previous history and physical notes report that he has diabe avery mellitus. However, he is not on any antidiabetic medications. We will start him on Accu-Cheks a nd insulin sliding scale as needed. 6. Atrial fibrillation. Hold rivaroxaban for now. Many thanks for allowing me to participate in your patient's care. Please feel free to contact me wi th any questions or concerns. LEVEL OF RISK: High. LEVEL OF COMPLEXITY: High.
[2017-12-31] MEDS: Octreotide Acetate 1,250 MCG in Sodium Chloride 0.9% 250 ML 250 ML IVPB SCH (17:38)
[2017-12-31 21:15] LABS: Hemoglobin 10.7 g/dL (14.0-18.0)
--- NOTE | 2017-12-31 22:32 | CON ---
DATE OF CONSULTATION: 12/31/2017 DATE OF ADMISSION: 12/31/2017 INDICATION FOR CONSULTATION: A 77-year-old patient with a history of coronary artery disease, status post a recent angioplasty or stent placement to a circumflex saphenous vein graft with a bare metal stent. He also has a history of chronic atrial fibrillation. After procedure, he was placed on Xare lto for his chronic atrial fibrillation as well as Plavix and aspirin. He was in a wedding a couple of day yesterday and started feeling very badly. He knows he had some nausea and vomiting. He felt lightheaded and woozy. He had a coffee-ground emesis. He presented to the emergency room. He was s een by GI and was taken directly from the emergency room to [facility], where that he under went endoscopy. He was found to have some oozing, but no specific site of the bleeding was found. H e did have a significant amount of blood clots apparently in the stomach. He denies any recent hemat emesis other than today and he denied any hematochezia. It was decided to hold the Xarelto, and we a re being consulted to determine whether or not he needs to stop the aspirin and the Plavix. At this time, they are all being held. The stent was placed on 12/05/2017. It is a nondrug drug-coated sten t and hopefully, he will remain stable without these medications. The indication would be to continu e the Plavix for 1 month after a bare metal stent. This is almost 1 month and certainly would be patti se enough that we can stop the medication, since he has had a significant GI bleed. He denied any ch est pain or significant shortness of breath otherwise. PAST MEDICAL HISTORY: Significant for the coronary artery disease, status post angioplasty, stent pl acement, status post bypass surgery, history of diabetes, hypertension, benign prostatic hypertrophy, dyslipidemia, chronic atrial fibrillation. He has had benign prostatic hypertrophy. He has had a t onsillectomy. He has had angioplasty and stent placement to the saphenous vein graft of the obtuse m arginal branch of the left circumflex. He also has a history of diabetes. FAMILY HISTORY: Noncontributory for any early heart disease. SOCIAL HISTORY: He has occasional alcohol use. He continues to smoke apparently. No illicit drug u se. ALLERGIES: None. MEDICATIONS: Prior to admission included aspirin, Plavix 75 mg a day, Xarelto 20 mg a day, atorvasta tin 40 mg a day, isosorbide mononitrate 60 mg a day, lisinopril 10 mg a day, Ranexa 500 mg daily, and vitamin B12. ALLERGIES: None. REVIEW OF SYSTEMS: A 12-point review of systems unremarkable except what was noted in the history of present illness. PHYSICAL EXAMINATION: GENERAL: Reveals a well-developed, well-nourished gentleman who is in the intensive care unit at [facility] s time. He appears to be very stable. He denies any complaints. VITAL SIGNS: His blood pressure 104/69, heart rate is 96 and irregular shows atrial fibrillation. O 2 saturation 94%, respiratory rate 23. He is afebrile. HEENT: Shows head to be normocephalic and atraumatic. Carotid pulses are present. I did not hear a ny significant bruits. CHEST: Clear to auscultation without any rales, rhonchi, or wheezing. CARDIOVASCULAR: Exam reveals an irregularly regular rhythm. I did not hear any significant murmurs, heaves, thrills, bruits, or rubs. ABDOMEN: Soft. He denies any significant discomfort at this time. EXTREMITIES: Showed no clubbing, cyanosis, or edema. Pedal pulses are present. NEUROLOGIC: The patient appears to be fully intact. SKIN: He has normal skin. His skin is warm and dry. He has normal neurologic effects. PSYCHIATRIC: He appears to be normal. LABORATORY DATA: Laboratory data showed a creatinine at this time of 2.17, previously creatinine wa s on 12/06/2017 was 1.27. Sodium is 140, potassium 5.0, blood sugar was 176. Hemoglobin was 11.1, d ropping down to 10.8, hematocrit remained relatively stable. WBC is 17.4, platelet count is 174,000. INR was 1.8. Chest x-ray shows a small left-sided pleural effusion. EKG shows atrial fibrillation with rapid ventricular response, but no acute ST segment elevations were noted or any other signific ant indication that the patient may be having any underlying ischemic episodes. He does have evidenc e of a right bundle branch block. IMPRESSION: 1. Acute gastrointestinal bleed on the patient who is on Xarelto, Plavix, and aspirin. These medici mayra will be held at this time. Once he is felt safe and then to resume his medications, perhaps we c an resume the Xarelto or Eliquis or some other medications for his atrial fibrillation, but at this t tamia we will hold the Plavix, as he is almost 1 month since her stents were placed. He may not be abl e to tolerate the Xarelto depending on what the transfer worker to determine is the extent of his disease, perhaps he may be a candidate to undergo a Watchman device, since he has had a high risk of repeat bleeding from a gastrointestinal standpoint. This will be reviewed and discussed with Dr. Ang fernandes when he sees the patient tomorrow. 2. History of hypercholesterolemia. We would continue with his present medications for the statins. 3. Hypertension. His blood pressure is actually on the low side at this time, his medications will be held until the blood pressure stabilizes. 4. Diabetes. This will be dealt with by the primary care physicians. Blood sugar is elevated today , this may be due to IV medications. I did not see that he is taking any medications for his diabete s at this time. 5. Chronic atrial fibrillation as noted above. He may be a candidate to undergo a Watchman device. We still would need to be on anticoagulation for 2-3 months after the procedure. We will need to ev aluate whether or not he has had any recent echocardiogram with Dr. Oro. His last cardiac ralph terization in November showed ejection fraction of 55% and he did an echocardiogram in 11/2017, ic h showed a moderately dilated left atrium with mild MR. Ejection fraction at that time was estimated to be about 45%-50%. At this time, the patient is stable. There is no indication that he has had a ny further GI bleeding. We will continue to monitor him very carefully.
[2018-01-01 05:48] LABS: #Eosinphils 0.1 thou/uL (0.0-0.7); #Lymphocytes 1.6 thou/uL (1.20-3.40); #Monocytes 0.9 thou/uL (0.11-0.59); #Neutrophils 8.3 thou/uL (1.40-6.50); %Basophils 0.3 % (0.0-1.0); %Eosinophils 1.1 % (0.0-10.0); %Lymphocytes 14.7 % (21.0-51.0); %Monocytes 8.1 % (0.0-10.0); %Neutrophils 75.8 % (42.0-75.0); Hemoglobin 9.7 g/dL (14.0-18.0); Mean Corpuscular HGB CONC 31.9 g/dL (32.0-36.0); Mean Corpuscular Hemoglobin 31.4 pg (27.0-31.0); Mean Corpuscular Volume 98.3 fL (78.0-98.0); Mean Platelet Volume 8.2 fL (7.4-10.4); Platelet Count 146 thou/uL (130-400); RBC Distribution Width 13.5 % (11.5-14.5)
[2018-01-01 05:53] LABS: Anion Gap 13 mmol/L (10-20); BUN (Urea Nitrogen) 69 mg/dL (8.4-25.7); Calc. Creatinine Clearance 51 mL/min (70-130); Calcium 8.7 mg/dL (7.8-10.44); Carbon Dioxide 19 mmol/L (23-31); Chloride 114 mmol/L (98-107); Estimated GFR-MDRD 36; Glucose 148 mg/dL (83-110); Potassium 4.8 mmol/L (3.5-5.1); Sodium 141 mmol/L (136-145)
[2018-01-01] MEDS: Sodium Chloride 0.9% 1,000 ML IV SCH ×2 (06:31→19:48)
--- NOTE | 2018-01-01 11:43 | CON ---
DATE OF CONSULTATION: 01/01/2018 HISTORY: This is a 77-year-old gentleman who has been in the hospital for GI bleed. I am consulted regarding his ICU care. He is a rather poor historian, has been smoking for most of his life, quit s moking 2 weeks ago. He was just recently discharged from the hospital 12/06/2017 after he presented to the hospital with chest pain. He normally sees Dr. Jett. During his last admission, a stent was inserted. He now presents with symptoms of hematemesis. He underwent endoscopy yesterday. ER physician had placed an NG tube and got coffee grounds. The he moglobin was stable at 11. The patient is clearly encephalopathic, is unable to give additional information. PAST MEDICAL HISTORY: Otherwise, pertinent for carotid disease, obstructive sleep apnea, diabetes, B PH, hyperlipidemia, hypertension, obesity. PAST SURGICAL HISTORY: Bypass, tonsils stent. TOBACCO: Tobacco as noted, was smoking for most of his life. ALCOHOL: Alcohol socially. MEDICATIONS: From home includes Flomax 0.4, Xarelto 20, Ranexa 500, nitroglycerin, Zestril 10, Imdu r 30, Plavix 75, Lipitor 40, aspirin 81. SOCIAL/FAMILY HISTORY: Unremarkable. REVIEW OF SYSTEMS: Ten point negative. PHYSICAL EXAMINATION: GENERAL: He is awake, alert, responsive. VITAL SIGNS: Sats are 90% on room air, pulse 80, blood pressure 90/80, respirations 18. CHEST: No wheezing or crackles. CARDIAC: Normal S1-S2. No gallops. ABDOMEN: Soft. EXTREMITIES: Trace edema. LABORATORY AND X-RAY FINDINGS: His creatinine is 1.8, BUN 69. White count 11,000. Chest x-ray was normal. IMPRESSION: 1. Status post upper gastrointestinal bleed, status post endoscopy, probably aggravated by multiple medications. 2. Recent cardiac stent. 3. Sleep apnea. 4. Tobacco abuse. 5. Chronic renal failure. PLAN: Pulmonary howe, we will follow while in the [facility]. Obviously, he is to refrain from smoking. Continue Protonix, etc. This is a consultation note, 70 minutes, 50% spent in direct patient care.
[2018-01-01] MEDS: Octreotide Acetate 1,250 MCG in Sodium Chloride 0.9% 250 ML 250 ML IVPB SCH (17:40)
--- NOTE | 2018-01-01 18:23 | PRG ---
DATE OF SERVICE: 01/01/2018 Mr. Pena passed a couple of black stools last night, but has had no bowel movement today. He has no abdominal pain. He is tolerating clear liquids so far. He has no other acute complaints. OBJECTIVE: VITAL SIGNS: Temperature 98.1, pulse 94, blood pressure 110/57. GENERAL: He is in no acute distress, awake and alert. LUNGS: Clear to auscultation bilaterally. HEART: Regular rate and rhythm without murmur. ABDOMEN: Soft, nontender, nondistended, bowel sounds are present. EXTREMITIES: No lower extremity edema. IMPRESSION: 1. Anemia of acute blood loss. 2. Gastrointestinal bleed. He underwent endoscopy by Dr. Wagner yesterday. The views were obscured b y retained food and blood clots in the stomach. No active bleeding was seen. Followup endoscopy joanne l be indicated to help determine bleeding source and risk for restarting anticoagulation antiplatelet s if needed. 3. Coronary artery disease, status post bare metal stent placement a month ago. 4. History of atrial fibrillation. RECOMMENDATIONS: 1. Continue proton pump inhibitor. 2. Follow trend of the hemoglobin. 3. Plan follow up EGD tomorrow. 4. Xarelto and Plavix are currently held. His last dose of Xarelto was on Monday.
--- NOTE | 2018-01-01 18:45 | PDOC.PN ---
- Subjective Encounter Start Date: 01/01/18 Encounter Start Time: 09:20 Pt seen for followup re: anemia of acute blood loss. Feels better. denies chest pain, shortness of breath, fevers or chills. - Objective Resuscitation Status: Resuscitation Status FULL:Full Resuscitation MAR Reviewed: Yes Vital Signs & Weight: Vital Signs (12 hours) Temp Pulse Resp BP Pulse Ox 01/01/18 16:37 98.1 F 94 14 110/57 L 97 01/01/18 13:15 99 01/01/18 12:00 98.5 F 01/01/18 08:17 98 01/01/18 07:17 98 Weight Weight 231 lb 11.293 oz Most Recent Monitor Data Heart Rate from ECG 102 NIBP 107/71 NIBP BP-Mean 83 Respiration from ECG 21 SpO2 97 I&O: 12/31/17 01/01/18 01/02/18 06:59 06:59 06:59 Intake Total 1193 603 Output Total 750 1204 Balance 443 -601 Result Diagrams: 01/01/18 04:54 01/01/18 04:54 Additional Labs: Accuchecks 01/01/18 01/01/18 01/01/18 16:54 11:04 05:57 POC Glucose 153 H 165 H 149 H 12/31/17 21:08 POC Glucose 149 H EKG Reviewed by me: Yes (Tele: rj alexander) Phys Exam - Physical Examination Obese HEENT: moist MMs, sclera anicteric, oral pharynx no lesions, 2+ tonsils Neck: no nodes, no JVD, supple, full ROM Respiratory: no wheezing, no rales, no rhonchi, clear to auscultation bilateral Cardiovascular: no rub, irregular S1, s2 Gastrointestinal: soft, non-tender, no distention, positive bowel sounds Neurological: moves all 4 limbs Psychiatric: normal affect, A&O x 3 Dx/Plan (1) Anemia due to acute blood loss Code(s): D62 - ACUTE POSTHEMORRHAGIC ANEMIA Status: Acute Comment: secondary to UGI bleed. Monitor H/H, transfuse PRN. (2) Upper GI bleed Code(s): K92.2 - GASTROINTESTINAL HEMORRHAGE, UNSPECIFIED Status: Acute Comment: continue to hold anticoagulation. s/p EGD yesterday (3) CAD (coronary artery disease) Code(s): I25.10 - ATHSCL HEART DISEASE OF [place] CORONARY ARTERY W/O ANG PCTRS Status: Chronic Comment: Plavix on hold due to GI bleed (4) CKD (chronic kidney disease), stage III Code(s): N18.3 - CHRONIC KIDNEY DISEASE, STAGE 3 (MODERATE) Status: Chronic Comment: continue to monitor creatinine, improved today (5) HLD (hyperlipidemia) Code(s): E78.5 - HYPERLIPIDEMIA, UNSPECIFIED Status: Chronic Comment: Continue atorvastatin - Plan * . Review of Systems - Review of Systems Constitutional: negative: fever, chills, sweats, weakness, malaise Respiratory: negative: Cough, Shortness of Breath, SOB with Excertion, Pleuritic Pain, Wheezing Cardiovascular: negative: chest pain, palpitations, orthopnea, paroxysmal nocturnal dyspnea, edema, light headedness Gastrointestinal: negative: Nausea, Vomiting, Abdominal Pain, Diarrhea, Constipation, Melena, Hematochezia Genitourinary: negative: Dysuria, Frequency, Incontinence, Hematuria, Retention Skin: negative: Rash, Lesions, [place], Bruising - Medications/Allergies Allergies/Adverse Reactions: Allergies Allergy/AdvReac Type Severity Reaction Status Date / Time No Known Allergies Allergy Verified 12/31/17 13:28 Medications: Current Medications Dextrose/Water (Dextrose 50%) 25 gm SLOW IVP PRN PRN PRN Reason: Hypoglycemia Glucagon (Glucagon) 1 mg IM PRN PRN PRN Reason: Hypoglycemia Sodium Chloride (Normal Saline 0.9%) 1,000 mls @ 75 mls/hr IV .[id number] [facility] Last Admin: 01/01/18 06:31 Dose: 1,000 mls Dextrose/Water (D5w) 1,000 mls @ 0 mls/hr IV .Q0M PRN PRN Reason: Hypoglycemia Octreotide Acetate 1,250 mcg/ (Sodium Chloride) 251.25 mls @ 5.02 mls/hr IVPB INF [facility] Last Admin: 01/01/18 17:40 Dose: 251.25 mls Insulin Human Lispro (Humalog) 0 units SC .MILD SLIDING SCALE PRN PRN Reason: Mild Correctional Scale Pantoprazole Sodium (Protonix) 40 mg IVP DAILY [facility] Sodium Chloride (Flush - Normal Saline) 10 ml IV DAILY [facility]
[2018-01-02] MEDS ORDERED: Pantoprazole 40 MG VIAL IVP SCH (09:00)
[2018-01-02] MEDS: Sodium Chloride 0.9% 1,000 ML IV SCH ×2 (09:18→16:32)
--- NOTE | 2018-01-02 10:13 | PRG ---
DATE OF SERVICE: 01/02/2018 SUBJECTIVE: This morning, he is a little bit more responsive. OBJECTIVE: VITAL SIGNS: Sats are 95 on room air, respiration rate 18, temperature 98, blood pressure is 150/67. CHEST: Chest reveals decreased breath sounds, no wheezing. CARDIAC: Normal S1, S2. No gallops. ABDOMEN: No masses. IMPRESSION: 1. Gastrointestinal bleed, no other source was found. 2. Multiple anticoagulation on board Xarelto, Plavix, aspirin. PLAN: Repeat endoscopy performed. Continue with his CPAP. Pulmonary will follow for another 24 tamia rs.
[2018-01-02 10:58] LABS: Anion Gap 10 mmol/L (10-20); BUN (Urea Nitrogen) 39 mg/dL (8.4-25.7); Calc. Creatinine Clearance 69 mL/min (70-130); Calcium 8.6 mg/dL (7.8-10.44); Carbon Dioxide 24 mmol/L (23-31); Chloride 116 mmol/L (98-107); Estimated GFR-MDRD 51; Glucose 150 mg/dL (83-110); Potassium 4.1 mmol/L (3.5-5.1); Sodium 146 mmol/L (136-145)
[2018-01-02 12:33] LABS: #Eosinphils 0.2 thou/uL (0.0-0.7); #Lymphocytes 1.2 thou/uL (1.20-3.40); #Monocytes 0.4 thou/uL (0.11-0.59); #Neutrophils 4.3 thou/uL (1.40-6.50); %Basophils 0.6 % (0.0-1.0); %Eosinophils 2.6 % (0.0-10.0); %Lymphocytes 19.6 % (21.0-51.0); %Neutrophils 70.3 % (42.0-75.0); Mean Corpuscular HGB CONC 33.5 g/dL (32.0-36.0); Mean Corpuscular Hemoglobin 32.4 pg (27.0-31.0); Mean Corpuscular Volume 96.8 fL (78.0-98.0); Mean Platelet Volume 7.9 fL (7.4-10.4); PLT Morphology Comment Appears Decreased; Platelet Count 108 thou/uL (130-400); RBC Distribution Width 13.6 % (11.5-14.5); Red Blood Cell (RBC) Count 2.47 mill/uL (4.70-6.10); White Blood Cell (WBC) Count 6.1 thou/uL (4.8-10.8)
[2018-01-02] MEDS ORDERED: PROPOFOL 200 MG/20 ML VIAL ONE (12:54)
--- NOTE | 2018-01-02 14:37 | PDOC.PN ---
- Subjective Encounter Start Date: 01/02/18 Encounter Start Time: 07:40 Pt seen for followup re: anemia of acute blood loss. Denies chest pain, shortness of breath, fevers or chills. - Objective Resuscitation Status: Resuscitation Status FULL:Full Resuscitation MAR Reviewed: Yes Vital Signs & Weight: Vital Signs (12 hours) Temp Pulse Resp BP BP Pulse Ox 01/02/18 12:00 97.0 F L 86 16 117/65 96 01/02/18 08:00 98.3 F 98 18 115/67 95 01/02/18 03:53 98.4 F 84 16 114/62 Weight Weight 231 lb 11.293 oz Most Recent Monitor Data Heart Rate from ECG 102 NIBP 107/71 NIBP BP-Mean 83 Respiration from ECG 21 SpO2 97 I&O: 01/01/18 01/02/18 01/03/18 06:59 06:59 06:59 Intake Total 1193 1963 Output Total 750 1664 200 Balance 443 299 -200 Result Diagrams: 01/02/18 10:23 01/02/18 10:23 Additional Labs: Accuchecks 01/02/18 01/02/18 01/01/18 11:10 05:11 20:02 POC Glucose 145 H 139 H 233 H 01/01/18 16:54 POC Glucose 153 H EKG Reviewed by me: Yes (Tele: rj alexander) Phys Exam - Physical Examination Constitutional: NAD HEENT: moist MMs Neck: supple Respiratory: clear to auscultation bilateral Cardiovascular: irregular Gastrointestinal: soft Neurological: moves all 4 limbs Psychiatric: normal affect Dx/Plan (1) Anemia due to acute blood loss Code(s): D62 - ACUTE POSTHEMORRHAGIC ANEMIA Status: Acute Comment: Recheck hemoglobin, transfuse PRN. (2) Upper GI bleed Code(s): K92.2 - GASTROINTESTINAL HEMORRHAGE, UNSPECIFIED Status: Acute Comment: Anticoagulation is on hold. Pt to go for repeat EGD today. (3) CAD (coronary artery disease) Code(s): I25.10 - ATHSCL HEART DISEASE OF [place] CORONARY ARTERY W/O ANG PCTRS Status: Chronic Comment: Plavix on hold (4) CKD (chronic kidney disease), stage III Code(s): N18.3 - CHRONIC KIDNEY DISEASE, STAGE 3 (MODERATE) Status: Chronic Comment: creatinine improved to 1.35 today (5) HLD (hyperlipidemia) Code(s): E78.5 - HYPERLIPIDEMIA, UNSPECIFIED Status: Chronic Comment: on atorvastatin - Plan * . Review of Systems - Review of Systems Cardiovascular: negative: chest pain, palpitations, orthopnea, paroxysmal nocturnal dyspnea, edema, light headedness Gastrointestinal: negative: Nausea, Vomiting, Abdominal Pain, Diarrhea, Constipation, Melena, Hematochezia - Medications/Allergies Allergies/Adverse Reactions: Allergies Allergy/AdvReac Type Severity Reaction Status Date / Time No Known Allergies Allergy Verified 12/31/17 13:28 Medications: Current Medications Dextrose/Water (Dextrose 50%) 25 gm SLOW IVP PRN PRN PRN Reason: Hypoglycemia Glucagon (Glucagon) 1 mg IM PRN PRN PRN Reason: Hypoglycemia Sodium Chloride (Normal Saline 0.9%) 1,000 mls @ 75 mls/hr IV .[id number] [facility] Last Admin: 01/02/18 09:18 Dose: 1,000 mls Dextrose/Water (D5w) 1,000 mls @ 0 mls/hr IV .Q0M PRN PRN Reason: Hypoglycemia Octreotide Acetate 1,250 mcg/ (Sodium Chloride) 251.25 mls @ 5.02 mls/hr IVPB INF [facility] Last Admin: 01/01/18 17:40 Dose: 251.25 mls Insulin Human Lispro (Humalog) 0 units SC .MILD SLIDING SCALE PRN PRN Reason: Mild Correctional Scale Pantoprazole Sodium (Protonix) 40 mg IVP DAILY [facility] Last Admin: 01/02/18 09:20 Dose: 40 mg Sodium Chloride (Flush - Normal Saline) 10 ml IV DAILY [facility] Last Admin: 01/02/18 09:22 Dose: 10 ml
[2018-01-02] MEDS ORDERED: Promethazine HCl 25 MG/ML VIAL SLOW IVP PRN (15:50)
[2018-01-02] MEDS ORDERED: Promethazine HCl 25 MG/ML VIAL IM PRN (15:50)
[2018-01-02] MEDS ORDERED: Ondansetron HCl/PF 4 MG/2 ML Vial IVP PRN (15:50)
--- NOTE | 2018-01-02 22:19 | OP ---
DATE OF PROCEDURE: 01/02/2018 PROCEDURE: EGD with biopsy. PREOPERATIVE DIAGNOSES: Recent upper gastrointestinal bleed with no overt bleeding, but retained cuco d in the proximal stomach making an inability to evaluate the GE junction, and the proximal stomach w ell. POSTOPERATIVE DIAGNOSES: 1. Mild esophagitis in the distal esophagus, no stigmata of bleeding. 2. Irregular squamocolumnar junction with of squamous mucosa radiating about 2 cm above the pr oximal gastric folds consistent with short segment Cueto esophagus, biopsied. 3. Normal stomach in forward and retroflexed views with no residual material in the stomach. 4. Normal pylorus. 5. Normal duodenal bulb. 6. Mild scalloping of the second and third portion of the duodenal folds, biopsy to rule out celiac. Scope was then removed. ANESTHESIA: TIVA. PROCEDURE IN DETAIL: After the patient was informed of the risks, benefits, possible complications o f endoscopy including perforation, bleeding, reactions to medication, aspiration, as well explained t o him the reason for second look of endoscopy that the stomach cannot be cleared at the first exam an d there was some blood in the proximal stomach with inability to move and evacuate all the food that was present there. Patient was sedated esophagus, stomach, second and third portion of duodenu m. There was mild distal esophagitis. No evidence of Judi-Aguilar tear, varices or ulcers. There was some irregular squamocolumnar junction with short segment Cueto's extending about 2 cm above th e GE junction. Biopsies were obtained. The stomach was entered in normal forward and retroflexed vi ews noted some portal gastropathy erosions, ulcers, 2 to 4 lesions or gastritis. The pyloric channel was normal. Duodenal bulb was normal. The second and third portion of the duodenum showed some mil d scalloping of the duodenal folds. Biopsy was taken to rule out celiac. The scope was removed. Th e patient tolerated the procedure without any complications.
[2018-01-03] MEDS: Sodium Chloride 0.9% 1,000 ML IV SCH ×2 (07:23→20:25)
[2018-01-03 08:35] LABS: #Basophils 0.1 thou/uL (0.0-0.2); #Eosinphils 0.2 thou/uL (0.0-0.7); #Lymphocytes 1.4 thou/uL (1.20-3.40); #Monocytes 0.5 thou/uL (0.11-0.59); #Neutrophils 3.9 thou/uL (1.40-6.50); %Basophils 0.9 % (0.0-1.0); %Eosinophils 3.1 % (0.0-10.0); %Lymphocytes 23.1 % (21.0-51.0); %Monocytes 7.7 % (0.0-10.0); %Neutrophils 65.1 % (42.0-75.0); Hemoglobin 8.9 g/dL (14.0-18.0); Mean Corpuscular HGB CONC 32.7 g/dL (32.0-36.0); Mean Corpuscular Hemoglobin 31.6 pg (27.0-31.0); Mean Corpuscular Volume 96.7 fL (78.0-98.0); Platelet Count 128 thou/uL (130-400); RBC Distribution Width 13.6 % (11.5-14.5); Red Blood Cell (RBC) Count 2.81 mill/uL (4.70-6.10)
[2018-01-03 09:03] LABS: Anion Gap 13 mmol/L (10-20); BUN (Urea Nitrogen) 22 mg/dL (8.4-25.7); Calc. Creatinine Clearance 77 mL/min (70-130); Calcium 9.1 mg/dL (7.8-10.44); Carbon Dioxide 21 mmol/L (23-31); Chloride 113 mmol/L (98-107); Estimated GFR-MDRD 58; Glucose 139 mg/dL (83-110); Potassium 3.7 mmol/L (3.5-5.1); Sodium 143 mmol/L (136-145)
--- NOTE | 2018-01-03 09:05 | PRG ---
DATE OF SERVICE: 01/03/2018 Status post GI bleed, underwent endoscopy again yesterday. Events as noted. He denies any difficult y breathing. PHYSICAL EXAMINATION: VITAL SIGNS: Sats are 96% on room air, respiration rate 18, temperature 98, blood pressure 155/70. GENERAL: He is definitely much more awake and responsive. CHEST: No wheezing or crackles. CARDIAC: Normal S1, S2, no gallops. ABDOMEN: Soft, no masses. LABORATORY DATA: Creatinine 1.35. H&H 8 and 23. IMPRESSION: 1. Status post upper gastrointestinal bleed. 2. Duodenal ulcer. 3. Sleep apnea. PLAN: Pulmonary will follow at a distance. He can see me on an outpatient basis regarding sleep apne a.
[2018-01-03] MEDS ORDERED: Aspirin 81 mg Enteric Coated Tablet PO SCH (10:00)
--- NOTE | 2018-01-03 17:05 | PDOC.PN ---
- Subjective Encounter Start Date: 01/03/18 Encounter Start Time: 08:20 Pt seen for followup re: anemia of acute blood loss. Denies chest pain, shortness of breath, fevers or chills. - Objective Resuscitation Status: Resuscitation Status FULL:Full Resuscitation MAR Reviewed: Yes Vital Signs & Weight: Vital Signs (12 hours) Temp Pulse Resp BP Pulse Ox 01/03/18 08:00 97.9 F 90 16 145/84 H 98 Weight Weight 230 lb 1 oz Most Recent Monitor Data Heart Rate from ECG 102 NIBP 107/71 NIBP BP-Mean 83 Respiration from ECG 21 SpO2 97 I&O: 01/02/18 01/03/18 01/04/18 06:59 06:59 06:59 Intake Total 1963 2448 Output Total 1664 2400 Balance 299 48 Result Diagrams: 01/03/18 08:23 01/03/18 08:23 Additional Labs: Accuchecks 01/03/18 01/03/18 01/02/18 11:16 07:36 20:51 POC Glucose 142 H 149 H 166 H 01/02/18 16:40 POC Glucose 122 H EKG Reviewed by me: Yes (Tele: rj alexander) Phys Exam - Physical Examination Obese HEENT: moist MMs Respiratory: clear to auscultation bilateral Cardiovascular: no rub, irregular Neurological: moves all 4 limbs Psychiatric: normal affect Dx/Plan (1) Anemia due to acute blood loss Code(s): D62 - ACUTE POSTHEMORRHAGIC ANEMIA Status: Acute Comment: Hemoglobin improved to 8.9 today. (2) Upper GI bleed Code(s): K92.2 - GASTROINTESTINAL HEMORRHAGE, UNSPECIFIED Status: Acute Comment: Pt being started on aspirin and apixaban. Plavix discontinued. (3) CAD (coronary artery disease) Code(s): I25.10 - ATHSCL HEART DISEASE OF [place] CORONARY ARTERY W/O ANG PCTRS Status: Chronic Comment: Pt being started on aspirin and apixaban. Plavix discontinued. (4) CKD (chronic kidney disease), stage III Code(s): N18.3 - CHRONIC KIDNEY DISEASE, STAGE 3 (MODERATE) Status: Chronic Comment: stable (5) HLD (hyperlipidemia) Code(s): E78.5 - HYPERLIPIDEMIA, UNSPECIFIED Status: Chronic Comment: continue atorvastatin - Plan * . Review of Systems - Review of Systems Cardiovascular: negative: chest pain, palpitations, orthopnea, paroxysmal nocturnal dyspnea, edema, light headedness Gastrointestinal: negative: Nausea, Vomiting, Abdominal Pain, Diarrhea, Constipation, Melena, Hematochezia - Medications/Allergies Allergies/Adverse Reactions: Allergies Allergy/AdvReac Type Severity Reaction Status Date / Time No Known Allergies Allergy Verified 12/31/17 13:28 Medications: Current Medications Apixaban (Eliquis) 5 mg PO BID [facility] Aspirin (Ecotrin) 81 mg PO DAILY [facility] Dextrose/Water (Dextrose 50%) 25 gm SLOW IVP PRN PRN PRN Reason: Hypoglycemia Glucagon (Glucagon) 1 mg IM PRN PRN PRN Reason: Hypoglycemia Sodium Chloride (Normal Saline 0.9%) 1,000 mls @ 75 mls/hr IV .[id number] [facility] Last Admin: 01/03/18 07:23 Dose: Not Given Dextrose/Water (D5w) 1,000 mls @ 0 mls/hr IV .Q0M PRN PRN Reason: Hypoglycemia Insulin Human Lispro (Humalog) 0 units SC .MILD SLIDING SCALE PRN PRN Reason: Mild Correctional Scale Pantoprazole Sodium (Protonix) 40 mg PO DAILY [facility] Last Admin: 01/03/18 09:59 Dose: 40 mg Sodium Chloride (Flush - Normal Saline) 10 ml IV DAILY [facility] Last Admin: 01/03/18 10:28 Dose: Not Given Sodium Chloride (Flush - Normal Saline) 10 ml IVF Q12HR [facility] Sodium Chloride (Flush - Normal Saline) 10 ml IVF PRN PRN PRN Reason: Saline Flush
--- NOTE | 2018-01-03 19:14 | PRG ---
DATE OF SERVICE: 01/03/2018 SUBJECTIVE: Mr. Pnea is tolerating his diet well today and has had no further stool output. He h as no abdominal pain. OBJECTIVE: VITAL SIGNS: Temperature 96.3, pulse 94, blood pressure 135/76. GENERAL: He is in no acute distress, alert and oriented x3. LUNGS: Clear to auscultation bilaterally. HEART: Regular rate and rhythm without murmur. ABDOMEN: Soft, nontender, nondistended. Bowel sounds are present. EXTREMITIES: No lower extremity edema. IMPRESSION: 1. Acute gastrointestinal bleed and anemia of acute blood loss. Followup endoscopy yesterday did no t show specific bleeding source; however, did have some gastritis and possible Cueto's and possible scalloping of the duodenum. Biopsies were obtained regarding that, but no major bleeding source see n. He could have had some retching and a Judi-Aguilar tear. 2. Coronary artery disease, status post bare metal stent a month ago. His Plavix has since been dis continued. RECOMMENDATIONS: 1. Start MiraLax twice daily at home for his chronic constipation. He has not responded adequately to once daily dosing. 2. Continue proton pump inhibitor daily. 3. He has been restarted on Eliquis and aspirin and appears to be tolerating that well. 4. He should be ready for discharge home tomorrow. I will sign off for now. Please call if GI can be of assistance.
[2018-01-03] MEDS ORDERED: Apixaban 5 MG TAB PO SCH (21:00)
[2018-01-04] MEDS: Sodium Chloride 0.9% 1,000 ML IV SCH (02:40)
[2018-01-04 05:45] LABS: #Basophils 0.1 thou/uL (0.0-0.2); #Eosinphils 0.2 thou/uL (0.0-0.7); #Lymphocytes 1.6 thou/uL (1.20-3.40); #Monocytes 0.4 thou/uL (0.11-0.59); #Neutrophils 3.1 thou/uL (1.40-6.50); %Basophils 1.2 % (0.0-1.0); %Eosinophils 3.4 % (0.0-10.0); %Lymphocytes 30.9 % (21.0-51.0); %Monocytes 6.9 % (0.0-10.0); %Neutrophils 57.6 % (42.0-75.0); Hemoglobin 7.9 g/dL (14.0-18.0); Mean Corpuscular HGB CONC 32.8 g/dL (32.0-36.0); Mean Corpuscular Hemoglobin 31.5 pg (27.0-31.0); Mean Corpuscular Volume 95.8 fL (78.0-98.0); Mean Platelet Volume 7.6 fL (7.4-10.4); Platelet Count 118 thou/uL (130-400); RBC Distribution Width 13.4 % (11.5-14.5); Red Blood Cell (RBC) Count 2.51 mill/uL (4.70-6.10); White Blood Cell (WBC) Count 5.3 thou/uL (4.8-10.8)
[2018-01-04 06:05] LABS: Anion Gap 9 mmol/L (10-20); BUN (Urea Nitrogen) 18 mg/dL (8.4-25.7); Calc. Creatinine Clearance 75 mL/min (70-130); Calcium 8.9 mg/dL (7.8-10.44); Carbon Dioxide 26 mmol/L (23-31); Chloride 113 mmol/L (98-107); Estimated GFR-MDRD 57; Glucose 105 mg/dL (83-110); Potassium 3.9 mmol/L (3.5-5.1); Sodium 144 mmol/L (136-145)
[2018-01-04] MEDS ORDERED: Artificial Tears 18 DROP/0.9 ML EA EYE PRN (07:40)
[2018-01-04] MEDS ORDERED: Ondansetron PF 4 MG/2 ML Vial IVP PRN (07:40)
[2018-01-04] MEDS ORDERED: Acetaminophen 500 MG TAB PO PRN (07:40)
[2018-01-04] MEDS ORDERED: Loratadine 10 MG TAB PO PRN (07:40)
[2018-01-04] MEDS ORDERED: Eucerin (Mineral Oil/Petrolatum,White) 30 gm Jar TOP PRN (07:40)
[2018-01-04] MEDS ORDERED: Ondansetron ODT 4 MG TAB PO PRN (07:40)
[2018-01-04] MEDS ORDERED: Loperamide HCl 2 MG CAP PO PRN (07:40)
[2018-01-04] MEDS ORDERED: Nitroglycerin 0.4 MG TAB (25 Tab Bottle) SL PRN (07:40)
[2018-01-04] MEDS ORDERED: Diabetic Tussin 200 MG/10 ML UDCUP PO PRN (07:40)
[2018-01-04] MEDS ORDERED: hydrALAZINE 20 MG/ML VIAL SLOW IVP PRN (07:40)
[2018-01-04] MEDS ORDERED: Bisacodyl 5 MG TAB PO PRN (07:40)
[2018-01-04] MEDS ORDERED: Sodium Chloride 0.65% Nasal 44 ML BOT EA NARE PRN (07:40)
[2018-01-04] MEDS ORDERED: Senokot S 8.6-50 MG TAB PO PRN (07:40)
[2018-01-04] MEDS ORDERED: Temazepam 15 MG CAP PO PRN (07:40)
[2018-01-04] MEDS ORDERED: Non-Formulary Item 1 EACH (Cholecalciferol (Vitamin D3) [Vitamin D3] 5,000 UNIT) PO SCH (09:00)
[2018-01-04] MEDS ORDERED: Aspirin 81 mg Enteric Coated Tablet PO SCH (09:00)
[2018-01-04] MEDS: Cyanocobalamin (Vitamin B-12) 1,000 MCG TAB PO SCH (10:20)
--- NOTE | 2018-01-04 10:27 | PDOC.PN ---
- Subjective Encounter Start Date: 01/04/18 Encounter Start Time: 07:50 -: old records requested/rev pt was feeling weak, today he has july, his Hb dropped by 1 gm - Objective Resuscitation Status: Resuscitation Status FULL:Full Resuscitation MAR Reviewed: Yes Vital Signs & Weight: Vital Signs (12 hours) Temp Pulse Resp BP Pulse Ox 01/04/18 03:44 97.7 F 86 18 122/77 98 Weight Weight 228 lb 4 oz Most Recent Monitor Data Heart Rate from ECG 102 NIBP 107/71 NIBP BP-Mean 83 Respiration from ECG 21 SpO2 97 I&O: 01/03/18 01/04/18 01/05/18 06:59 06:59 06:59 Intake Total 2448 800 Output Total 2400 600 Balance 48 200 Result Diagrams: 01/04/18 05:19 01/04/18 05:19 Additional Labs: Accuchecks 01/04/18 01/03/18 01/03/18 05:59 20:56 17:22 POC Glucose 123 H 204 H 136 H 01/03/18 11:16 POC Glucose 142 H Radiology Reviewed by me: Yes EKG Reviewed by me: Yes (nsr) Phys Exam - Physical Examination Constitutional: NAD HEENT: PERRLA, moist MMs, sclera anicteric Neck: no JVD, supple Respiratory: no wheezing, no rales, no rhonchi Cardiovascular: RRR, no significant murmur, no rub Gastrointestinal: soft, non-tender, no distention, positive bowel sounds Musculoskeletal: no edema, pulses present Neurological: non-focal, normal sensation Psychiatric: normal affect, A&O x 3 Skin: no rash, normal turgor Dx/Plan (1) Anemia due to acute blood loss Code(s): D62 - ACUTE POSTHEMORRHAGIC ANEMIA Status: Acute Comment: Hemoglobin improved to 8.9 today. (2) Symptomatic anemia Code(s): D64.9 - ANEMIA, UNSPECIFIED Status: Acute (3) Upper GI bleed Code(s): K92.2 - GASTROINTESTINAL HEMORRHAGE, UNSPECIFIED Status: Acute Comment: Pt being started on aspirin and apixaban. Plavix discontinued. (4) NSTEMI (non-ST elevated myocardial infarction) Code(s): I21.4 - NON-ST ELEVATION (NSTEMI) MYOCARDIAL INFARCTION Status: Acute Comment: s/p BMS to OM, dual anti-platelet therapy, Lipitor (5) CAD (coronary artery disease) Code(s): I25.10 - ATHSCL HEART DISEASE OF [place] CORONARY ARTERY W/O ANG PCTRS Status: Chronic Comment: Pt being started on aspirin and apixaban. Plavix discontinued. (6) CKD (chronic kidney disease), stage III Code(s): N18.3 - CHRONIC KIDNEY DISEASE, STAGE 3 (MODERATE) Status: Chronic Comment: stable (7) HLD (hyperlipidemia) Code(s): E78.5 - HYPERLIPIDEMIA, UNSPECIFIED Status: Chronic Comment: continue atorvastatin (8) Tobacco abuse Code(s): Z72.0 - TOBACCO USE Status: Chronic Comment: Tobacco cessation resources - Plan cont current plan of care, plan discussed w/ family * as his Hb dropped by 1 gm, will monitor one more day and repeat labs tomorrow * discussed with * OK to dc tele * medication reviewed as below * symptomatic treatment. * DC IVF Review of Systems - Review of Systems Constitutional: negative: fever, chills, sweats, weakness, malaise, other Eyes: negative: Pain, Vision Change, Conjunctivae Inflammation, Eyelid Inflammation, Redness, Other ENT: negative: Ear Pain, Ear Discharge, Nose Pain, Nose Discharge, Nose Congestion, Mouth Pain, Mouth Swelling, Throat Pain, Throat Swelling, Other Respiratory: negative: Cough, Dry, Shortness of Breath, Hemoptysis, SOB with Excertion, Pleuritic Pain, Sputum, Wheezing Cardiovascular: light headedness. negative: chest pain, palpitations, orthopnea , paroxysmal nocturnal dyspnea, edema, other Gastrointestinal: Melena. negative: Nausea, Vomiting, Abdominal Pain, Diarrhea , Constipation, Hematochezia, Other Genitourinary: negative: Dysuria, Frequency, Incontinence, Hematuria, Retention , Other Musculoskeletal: negative: Neck Pain, Shoulder Pain, Arm Pain, Back Pain, Hand Pain, Leg Pain, Foot Pain, Other Skin: negative: Rash, Lesions, [place], Bruising, Other - Medications/Allergies Allergies/Adverse Reactions: Allergies Allergy/AdvReac Type Severity Reaction Status Date / Time No Known Allergies Allergy Verified 12/31/17 13:28 Medications: Current Medications Acetaminophen (Tylenol) 1,000 mg PO Q6H PRN PRN Reason: Mild Pain (1-3) Artificial Tears (Tears Naturale) 2 drop EA EYE PRN PRN PRN Reason: Dry Eyes Atorvastatin Calcium (Lipitor) 40 mg PO HS [facility] Bisacodyl (Dulcolax) 10 mg PO DAILYPRN PRN PRN Reason: Constipation Cholecalciferol (Vitamin D3) 5,000 units PO DAILY [facility] Last Admin: 01/04/18 10:20 Dose: 5,000 units Cyanocobalamin (Vitamin B-12) 1,000 mcg PO DAILY [facility] Last Admin: 01/04/18 10:20 Dose: 1,000 mcg Dextrose/Water (Dextrose 50%) 25 gm SLOW IVP PRN PRN PRN Reason: Hypoglycemia Glucagon (Glucagon) 1 mg IM PRN PRN PRN Reason: Hypoglycemia Guaifenesin (Robitussin Sf) 200 mg PO Q4H PRN PRN Reason: Cough Hydralazine HCl (Apresoline) 10 mg SLOW IVP Q4H PRN PRN Reason: SBP > 180 and HR < 70 Dextrose/Water (D5w) 1,000 mls @ 0 mls/hr IV .Q0M PRN PRN Reason: Hypoglycemia Insulin Human Lispro (Humalog) 0 units SC .MILD SLIDING SCALE PRN PRN Reason: Mild Correctional Scale Isosorbide Mononitrate (Imdur Er) 30 mg PO DAILY [facility] Last Admin: 01/04/18 10:20 Dose: 30 mg Loperamide HCl (Imodium) 2 mg PO PRN PRN PRN Reason: Diarrhea/Loose Stools Loratadine (Claritin) 10 mg PO DAILYPRN PRN PRN Reason: Sinus Symptoms Mineral Oil/White Petrolatum (Eucerin Cream) 0 gm TOP BIDPRN PRN PRN Reason: Dry Skin Nitroglycerin (Nitrostat) 0.4 mg SL Q5MIN PRN PRN Reason: Chest Pain Ondansetron HCl (Zofran Odt) 4 mg PO Q6H PRN PRN Reason: Nausea/Vomiting Ondansetron HCl (Zofran) 4 mg IVP Q6H PRN PRN Reason: Nausea/Vomiting Pantoprazole Sodium (Protonix) 40 mg PO DAILY [facility] Last Admin: 01/04/18 10:20 Dose: 40 mg Ranolazine (Ranexa) 500 mg PO BID [facility] Stop: 01/11/18 09:01 Last Admin: 01/04/18 10:19 Dose: 500 mg Ranolazine (Ranexa) 1,000 mg PO BID [facility] Senna/Docusate Sodium (Senokot S) 2 tab PO BID PRN PRN Reason: Constipation Sodium Chloride (Flush - Normal Saline) 10 ml IV DAILY [facility] Last Admin: 01/04/18 10:20 Dose: Not Given Sodium Chloride (Flush - Normal Saline) 10 ml IVF Q12HR [facility] Last Admin: 01/04/18 10:21 Dose: Not Given Sodium Chloride (Flush - Normal Saline) 10 ml IVF PRN PRN PRN Reason: Saline Flush Sodium Chloride ([place] Nasal [place] 0.65%) 0 ml EA NARE QIDPRN PRN PRN Reason: Nasal Congestion Tamsulosin HCl (Flomax) 0.4 mg PO HS [facility] Temazepam (Restoril) 15 mg PO HSPRN PRN PRN Reason: Insomnia
[2018-01-04] MEDS ORDERED: Tamsulosin HCl 0.4 MG CAP PO SCH (21:00)
[2018-01-04] MEDS ORDERED: Atorvastatin Calcium 40 MG TAB PO SCH (21:00)
[2018-01-05 06:50] LABS: #Eosinphils 0.2 thou/uL (0.0-0.7); #Lymphocytes 1.2 thou/uL (1.20-3.40); #Monocytes 0.4 thou/uL (0.11-0.59); #Neutrophils 4.4 thou/uL (1.40-6.50); %Basophils 0.6 % (0.0-1.0); %Eosinophils 3.2 % (0.0-10.0); %Lymphocytes 19.1 % (21.0-51.0); %Monocytes 6.7 % (0.0-10.0); %Neutrophils 70.5 % (42.0-75.0); Mean Corpuscular HGB CONC 32.9 g/dL (32.0-36.0); Mean Corpuscular Hemoglobin 31.5 pg (27.0-31.0); Mean Platelet Volume 7.7 fL (7.4-10.4); Platelet Count 137 thou/uL (130-400); RBC Distribution Width 13.9 % (11.5-14.5); Red Blood Cell (RBC) Count 2.86 mill/uL (4.70-6.10); White Blood Cell (WBC) Count 6.2 thou/uL (4.8-10.8)
[2018-01-05 07:15] LABS: Anion Gap 10 mmol/L (10-20); BUN (Urea Nitrogen) 12 mg/dL (8.4-25.7); Calc. Creatinine Clearance 68 mL/min (70-130); Calcium 9.3 mg/dL (7.8-10.44); Carbon Dioxide 25 mmol/L (23-31); Chloride 109 mmol/L (98-107); Estimated GFR-MDRD 51; Glucose 153 mg/dL (83-110); Potassium 3.8 mmol/L (3.5-5.1); Sodium 140 mmol/L (136-145)
[2018-01-05] MEDS: Cyanocobalamin (Vitamin B-12) 1,000 MCG TAB PO SCH (08:33)
[2018-01-05] MEDS ORDERED: Aspirin 81 mg Enteric Coated Tablet PO SCH (09:30)
[2018-01-05] MEDS ORDERED: Apixaban 5 MG TAB PO SCH ×2 (09:30→21:00)
[2018-01-05 10:40] VITALS: BP 99/64; TEMP 97.6
--- NOTE | 2018-01-05 11:11 | DIS ---
DATE OF ADMISSION: 12/31/2017 DATE OF DISCHARGE: 01/05/2018 PRIMARY CARE PHYSICIAN: Preet Jett M.D. DISCHARGE DISPOSITION: Home. PRIMARY DISCHARGE DIAGNOSES: 1. Symptomatic anemia. 2. Upper gastrointestinal bleed. 3. Anemia due to acute blood loss. 4. Acute on chronic kidney failure, baseline chronic kidney disease stage 3. SECONDARY DISCHARGE DIAGNOSES: Tobacco abuse disorder, paroxysmal atrial fibrillation, hypertension, dyslipidemia, chronic kidney disease stage 3, coronary artery disease, obesity with BMI 31. PRIMARY PROCEDURE AND OPERATION: Dr. Wagner did upper endoscopy on 12/31/2017, which showed linear ero jacque at the gastroesophageal junction. No esophageal or gastric varices. No ulcer. Patient had rep eat upper endoscopy on 01/02/2018, which showed mild esophagitis, Cueto's esophagus. RADIOLOGICAL INVESTIGATION: Chest x-ray was unremarkable. SIGNIFICANT LABORATORY DATA: WBC 6.2, hemoglobin 9.0, platelet 137. INR 1.8. Sodium 140, potassium 3.8, BUN 12, creatinine 1.35, calcium 9.3. LFT normal. DISCHARGE MEDICATIONS: Nitroglycerin 0.4 mg sublingual p.r.n., Lipitor 40 mg p.o. at bedtime, vitami n D3 5000 units p.o. daily, vitamin B12 1000 mcg p.o. daily, Imdur 30 mg p.o. daily, lisinopril 10 mg p.o. b.i.d., Flomax 0.4 mg p.o. at bedtime, Eliquis 5 mg p.o. b.i.d., aspirin 81 mg p.o. daily, Prot neil 40 mg p.o. daily, MiraLax 17 grams p.o. daily, Ranexa 500 mg p.o. b.i.d. CONTRAINDICATIONS: None. CODE STATUS: FULL CODE. INPATIENT CONSULTANTS: Dr. Briggs and GI team was following while in hospital. Dr. Marks was followin g while in hospital. TEST RESULTS PENDING ON DISCHARGE: None. ALLERGIES: No known drug allergy. DISCHARGE PLAN: Post hospital, the patient will follow up with Dr. Briggs as instructed. The patient will make appointment with primary care physician. HOSPITAL COURSE: A 77-year-old male with above-mentioned medical problem who was admitted by Dr. Orly rodriguez on 12/31/2017. Please see his H&P for further detail. The patient was admitted for hematemesis. Patient was on Xarelto, aspirin and Plavix prior to arrival to the hospital. Patient does have bare metal stent placed on 12/05/2017. During this admission, Plavix was discontinued, aspirin at low do se given. We changed Xarelto to Eliquis. Before all these things happened, the patient underwent upper endoscopy. 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 The patient was admitted to the Critical Care Unit initially and that is why Pulmonary group sa w this patient. Gastroenterology team was also following while in hospital. After second endoscopy, the patient was observed on the telemetry floor. He did not have any further drop in his hemoglobin. He did not require any blood transfusion during this admission. The jonathan oneill was transferred to medical floor. His hemoglobin remained stable, and today his hemoglobin is 9.0. His creatinine is also improving. He was given IV fluid. He was treated with IV PPI. The patient education was given to avoid NSAID. GI team has already cleared for discharge. The xavier ent is tolerating his diet. He is hemodynamically stable. I saw this patient at bedside and examined. Necessary patient education about GI bleed was given to him and his . PHYSICAL EXAMINATION: VITAL SIGNS: Currently, temperature 97.6, pulse 97, respiratory rate 16, saturation 99% on room air, blood pressure 130/72, weight 228 pounds. GENERAL: The patient is currently alert, awake, no obvious acute distress. HEAD: Normocephalic, atraumatic. EYES: Pupils round, reactive to light. Extraocular muscle intact. ENT: Oropharynx within normal limits. Moist mucous membrane, no oral lesion, no pharyngeal erythema , no exudate. NECK: Supple, no JVD, no thyromegaly, no carotid bruit. LUNGS: Clear to auscultation without any rhonchi or rales. CARDIAC: S1, S2 regular without any murmur. ABDOMEN: Soft and benign without any epigastric tenderness. EXTREMITIES: No edema. NEUROLOGIC: Nonfocal examination. All new medication prescription sent to his pharmacy. Total time spent on discharge day 31 minutes.
[2018-01-06] MEDS ORDERED: Aspirin 81 mg Enteric Coated Tablet PO SCH (09:00)
--- NOTE | 2018-01-06 13:41 | EKG ---
Test Reason : Blood Pressure : / mmHG Vent. Rate : 089 BPM Atrial Rate : 070 BPM P-R Int : 000 ms QRS Dur : 146 ms QT Int : 392 ms P-R-T Axes : 000 000 052 degrees QTc Int : 476 ms Atrial fibrillation Right bundle branch block Cannot rule out Inferior infarct , age undetermined Abnormal ECG Confirmed by CHERRI AMAYA DO ([id number]), editorial manager ANISH BAÑUELOS ([id number]) on 01/06/2018 1:41:36 PM Referred By: Confirmed By:CHERRI AMAYA DO
== END 2018-01-05 11:15 | disposition home or self-care (01) | DRG 378 ==
LOC: ERS 11:45 → SDC 14:03 → CCU 15:45 → 2NO 01-01 12:57 → T4-B 01-04 17:24
PROVIDERS: ADMIT Internal Medicine; ATTEND Internal Medicine
PROC: 0DJ08ZZ Inspection of Upper Intestinal Tract, Via Natural or Artificial Opening Endoscopic (ICD-10-PCS; principal; 2017-12-31)
PROC: 0DB98ZX Excision of Duodenum, Via Natural or Artificial Opening Endoscopic, Diagnostic (ICD-10-PCS; 2018-01-02)
PROC: 0DB38ZX Excision of Lower Esophagus, Via Natural or Artificial Opening Endoscopic, Diagnostic (ICD-10-PCS; 2018-01-02)
DX: K25.4 Chronic or unspecified gastric ulcer with hemorrhage (principal); D62 Acute posthemorrhagic anemia; K76.6 Portal hypertension; N17.9 Acute kidney failure, unspecified; I45.10 Unspecified right bundle-branch block; K22.70 Barrett's esophagus without dysplasia; K31.89 Other diseases of stomach and duodenum; K20.9 Esophagitis, unspecified; I48.0 Paroxysmal atrial fibrillation; I25.10 Atherosclerotic heart disease of native coronary artery without angina pectoris; E11.22 Type 2 diabetes mellitus with diabetic chronic kidney disease; I12.9 Hypertensive chronic kidney disease with stage 1 through stage 4 chronic kidney disease, or unspecified chronic kidney disease; N18.3 Chronic kidney disease, stage 3 (moderate); E78.00 Pure hypercholesterolemia, unspecified; N40.0 Benign prostatic hyperplasia without lower urinary tract symptoms; K57.30 Diverticulosis of large intestine without perforation or abscess without bleeding; G47.30 Sleep apnea, unspecified; E66.9 Obesity, unspecified; Z68.31 Body mass index [BMI] 31.0-31.9, adult; I25.2 Old myocardial infarction; Z87.891 Personal history of nicotine dependence; Z95.1 Presence of aortocoronary bypass graft; Z95.5 Presence of coronary angioplasty implant and graft; Z79.01 Long term (current) use of anticoagulants; Z79.02 Long term (current) use of antithrombotics/antiplatelets; Z79.82 Long term (current) use of aspirin
CPT/HCPCS: 36415; 36416; 71045; 80048; 80053; 82274; 82553; 84484; 85025; 85610; 86850; 86900; 86901; 88305; 88312; 88313; 93005; 96365; 96375; C9113; J2354; J2405; J2704; J7050

== ENCOUNTER 2019-07-08 14:52 | Inpatient (IN) | payer MEDICARE, BC ==
[~2019-07-08 14:52] MED LIST changes: +Iopamidol-370 76% 500 ML 1 ML ONE; -PHENYLEPHRINE-NS 100 MCG/ML 10 ML SYRINGE ONE; -PROPOFOL 200 MG/20 ML VIAL ONE; -Succinylcholine Chloride 20 MG/ML 10 ml SYRINGE FS ONE; -ePHEDrine/0.9% NaCl/PF SYRINGE 50 mg/10 ml ONE
[2019-07-08] MEDS ORDERED: Adacel (T-DAP) 0.5 ML SYRINGE ONE (15:41)
--- NOTE | 2019-07-08 15:52 | RAD ---
Exam: XR Elbow Lt 4 View STANDARD HISTORY: Injury to left elbow after a fall. COMPARISON: None FINDINGS: There is a corticated osseous density seen adjacent to the medial epicondyle suggesting prior injury. Minimal osteoarthritis is seen about the left elbow. No acute fracture or dislocation is seen. An enthesophyte is seen involving the olecranon process of the ulna. Multiple surgical clips are seen ov erlying the volar subcutaneous soft tissues proximal forearm. IMPRESSION: 1. No acute osseous abnormality identified. 2. Corticated osseous density adjacent to the medial epicondyle suggesting prior injury left elbow.
[2019-07-08 16:04] LABS: Hemoglobin 14.1 g/dL (14.0-18.0); Mean Corpuscular HGB CONC 34.4 g/dL (32.0-36.0); Mean Corpuscular Hemoglobin 33.6 pg (27.0-31.0); Mean Corpuscular Volume 97.8 fL (78.0-98.0); White Blood Cell (WBC) Count 10.9 thou/uL (4.8-10.8)
[2019-07-08 16:05] LABS: #Eosinphils 0.1 thou/uL (0.0-0.7); #Lymphocytes 0.7 thou/uL (1.20-3.40); #Monocytes 0.6 thou/uL (0.11-0.59); #Neutrophils 9.4 thou/uL (1.40-6.50); %Basophils 0.3 % (0.0-1.0); %Lymphocytes 6.6 % (21.0-51.0); %Monocytes 5.6 % (0.0-10.0); %Neutrophils 86.6 % (42.0-75.0); Mean Platelet Volume 8.6 fL (7.4-10.4); Platelet Count 114 thou/uL (130-400)
[2019-07-08 16:23] LABS: ALT (SGPT) 78 U/L (8-55); AST (SGOT) 67 U/L (5-34); Albumin 3.7 g/dL (3.4-4.8); Alkaline Phosphatase 92 U/L (40-110); Anion Gap 12 mmol/L (10-20); BUN (Urea Nitrogen) 14 mg/dL (8.4-25.7); Bilirubin, Total 0.8 mg/dL (0.2-1.2); Calc. Creatinine Clearance 0 mL/min (70-130); Calcium 9.7 mg/dL (7.8-10.44); Carbon Dioxide 22 mmol/L (23-31); Chloride 108 mmol/L (98-107); Estimated GFR-MDRD 41; Globulin 2.6 g/dL (2.4-3.5); Glucose 209 mg/dL (83-110); Potassium 4.1 mmol/L (3.5-5.1); Protein, Total 6.3 g/dL (5.8-8.1); Sodium 138 mmol/L (136-145)
--- NOTE | 2019-07-08 16:36 | RAD ---
LEFT HAND THREE VIEWS: History: Fall, left hand pain. FINDINGS/IMPRESSION: No acute fracture or dislocation is seen. POS: [facility]
--- NOTE | 2019-07-08 17:37 | CT ---
CT BRAIN: Date: 07-08-2019 Provided Clinical History: Head injury. FINDINGS: No comparisons. The ventricular system appears normal in size and morphology. There is no evidence fo r intracranial hemorrhage or mass effect. Chronic microvascular ischemic changes are seen involving t he cerebral white matter. There is high density material, likely reflecting blood products within the right maxillary sinus and irregular appearance to the floor of the right orbit. The extracranial sof t tissues and osseous structures appear otherwise unremarkable. IMPRESSION: 1. No evidence for intracranial hemorrhage or mass effect. 2. Probable right orbital floor fracture. Please correlate with concurrently performed CT facial bone s. POS: DOUG
--- NOTE | 2019-07-08 17:39 | CT ---
CT FACIAL BONES: Date: 07-08-2019 Provided Clinical History: Eye pain status post injury. FINDINGS: There is a nondisplaced fracture involving the floor of the right orbit. There are blood products wit hin the right maxillary sinus. Nondisplaced fracture involving the posterior wall of the right maxill corey sinus is also demonstrated. No additional fracture is evident. The globes and other orbital pablito nts appear unremarkable. The paranasal sinuses appear otherwise clear. IMPRESSION: Nondisplaced orbital floor and posterior wall maxillary sinus fractures on the right. POS: DOUG
--- NOTE | 2019-07-08 17:40 | CT ---
CT CERVICAL SPINE: Date: 07-08-2019 Provided Clinical History: Pain status post injury. FINDINGS: No evidence for fracture or traumatic subluxation. No prevertebral soft tissue swelling apparent. Sarthak ateral carotid calcifications. Visualized lung apices appear clear. Cervical degenerative changes are seen. IMPRESSION: No evidence for fracture or traumatic subluxation. POS: DOUG
--- NOTE | 2019-07-08 17:43 | CT ---
CT LUMBAR SPINE WITHOUT CONTRAST: Date: 07-08-2019 Provided Clinical History: Injury. FINDINGS: There is partially visualized high density fluid compatible with blood products about the posterior m edial margin of the right hepatic lobe. There are stranding changes partially visualized in the expec reji location of the right adrenal gland, which is not discretely identified. Partially visualized hyp odensity involving the medial aspect of the right hepatic lobe near the dome. There are chronic appearing bilateral pars defects with grade I spondylolisthesis of L5 on S1. Lumbar alignment appears otherwise normal. There is no evidence for fracture. Vascular calcification is not ed involving abdominal aorta and its branches. 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 There is aneurysmal dilatation of the a left common iliac artery, measuring up to 3 cm. IMPRESSION: 1. No evidence for an acute osseous abnormality involving the lumbar spine. 2. Partially visualized blood products and stranding changes about the right hepatic lobe and right a drenal gland region, presumably post-traumatic. Correlation with dedicated CT abdomen and pelvis with IV contrast is recommended. Findings and recommendations discussed with the referring physician at 4 :51 p.m. 07-08-2019. 3. 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 POS: DOUG
--- NOTE | 2019-07-08 18:31 | CT ---
CT ABDOMEN AND PELVIS WITH IV CONTRAST: Indications: Injury. FINDINGS: Images through the lung bases show mild bibasilar atelectasis. There are several low density circumscribed lesions in the liver consistent with hepatic cysts. The l argest of these in the anterior left lobe measures up to 4 cm. No focal hepatic laceration or contusion identified. There is abnormal stranding in the right periton eum which extends to the surface of the right of the liver inferiorly consistent with right retroperi toneal hemorrhage. There is right perinephric hemorrhage, although no definite renal laceration is id entified on the right. Numerous calcified gallstones are seen layering dependently within the gallbladder. No pericholecysti c edema. The spleen is intact and unremarkable. The right adrenal gland is obscured by the right retroperitoneal hemorrhage. The left adrenal is unremarkable. The left kidney shows no evidence of acute injury. There is a cyst from the inferior pole of the left kidney which measures up to 3.5 cm. The pancreas is unremarkable. The aorta shows atherosclerotic change with peripheral calcification and soft plaque. Mild ectasia/an eurysmal dilatation of the distal abdominal aorta is seen with diameter measuring 2.9 to 3.0 cm. Ther e is focal aneurysm extending from the proximal left common iliac artery at the bifurcation to the in ternal and external iliacs. This focal aneurysm measures up to 3.0 cm. There is diffuse ectasia of th e right common iliac artery as well. Images of the abdomen show unremarkable bowel loops. No free fluid otherwise seen in the abdomen. Images through the pelvis reveal a mildly distended urinary bladder which is unremarkable. The prostate is significantly enlarged and indents the floor of the bladder. Prostate measures up to 7 cm with 6.6 cm AP dimension. This should be evaluated by urology. Degenerative changes in the spine and hips. IMPRESSION: 1. Right retroperitoneal hemorrhage with blood extending to the inferior surface to the liver and blo od extending in the right perinephric and paranephric spaces. No definite hepatic or right renal inju ry. The right adrenal gland is obscured and this hemorrhage may have originated from the right adrena l gland. Short term follow up is recommended to reassess the extent of this retroperitoneal hemorrhag e. 2. Numerous hepatic cystic lesions. 3. Cholelithiasis. 4. Significant prostatic hypertrophy. Elective urologic follow up is recommended. 5. 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 POS: AGW
[2019-07-08 19:19] LABS: INR-International Normal Ratio 1.3; PTT 28.2 SEC (22.9-36.1); Prothrombin Time 16.4 SEC (12.0-14.7)
--- NOTE | 2019-07-08 19:27 | RAD ---
PORTABLE CHEST: History: Trauma. Patient fell down a ravine. Laceration to right eye and right hand pain. Comparison: 12-31-17 FINDINGS: Post-surgical changes related to CABG are again seen. Cardiac silhouette is magnified by projection b ut stable in size. The pulmonary vasculature is within normal limits. No consolidation is present. Th ere is persistent mild blunting of the left lateral costophrenic angle, but on prior CT abdomen on , the patient was noted to chronic epicardial fat pad at the left lung base which probably acc ounts for this finding. Lungs are otherwise clear. Osteopenia is present. Remote healed right clavicl e fracture again seen. Vascular calcification is seen in the thoracic aorta. IMPRESSION: No acute cardiopulmonary process. POS: TEMITOPE
[2019-07-08] MEDS ORDERED: Fentanyl 100 MCG/2 ML VIAL SLOW IVP PRN (20:42)
[2019-07-08] MEDS ORDERED: Ondansetron PF 4 MG/2 ML Vial SLOW IVP PRN (20:43)
[2019-07-08] MEDS ORDERED: hydrALAZINE 20 MG/ML VIAL SLOW IVP PRN (20:44)
[2019-07-08] MEDS ORDERED: Dextrose 5% in Water 1,000 ML IV PRN (20:44)
[2019-07-08] MEDS ORDERED: Insulin Regular 300 UNITS/3 ML VIAL SC PRN (20:44)
[2019-07-08] MEDS ORDERED: Ondansetron PF 4 MG/2 ML Vial IVP PRN (20:44)
[2019-07-08] MEDS ORDERED: Ondansetron ODT 4 MG TAB PO PRN (20:44)
[2019-07-08] MEDS ORDERED: Dextrose 50% Abboject 50 ML SYRINGE SLOW IVP PRN (20:44)
[2019-07-08] MEDS ORDERED: Sodium Chloride 0.9% 1,000 ML IV SCH ×2 (20:45→21:15)
[2019-07-08] MEDS ORDERED: Famotidine 20 MG TAB PO SCH (21:00)
[2019-07-08 21:20] LABS: Magnesium 1.8 mg/dL (1.6-2.6)
--- NOTE | 2019-07-08 21:22 | HP ---
HISTORY OF PRESENT ILLNESS: The patient is a 79-year-old male, who was walking along the ravine when he fell down the matt edge and his face causing lacerations to his scalp and face. He got up and fell again and developed some back pain, was brought in. PAST MEDICAL HISTORY: Significant for coronary artery disease, diabetes, hypertension, BPH, dyslipidemia, and atrial fibrillation. PAST SURGICAL HISTORY: Had a coronary artery bypass graft. He has had stents, tonsillectomy. FAMILY HISTORY: Coronary artery disease. SOCIAL HISTORY: Occasional alcohol. He does use oral tobacco. ALLERGIES: NO KNOWN DRUG ALLERGIES. MEDICATIONS: 1. Aspirin. 2. Isosorbide. 3. Lisinopril. 4. Atorvastatin. 5. Tamsulosin. 6. Protonix. 7. Vitamin D3. 8. Plavix. 9. Ranexa. 10. Vitamin B12. PHYSICAL EXAMINATION: CT shows no evidence of intracranial hemorrhage. There is probably a right orbital floor fracture. Cervical spine fine is normal. Facial bones, just orbital floor fracture on the right. Lumbar spine CT, no osseous abnormalities. There is a retroperitoneal hematoma with blood stranding about the right hepatic lobe, right adrenal and perinephric area. 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 Elbow x-ray, negative. Hand x-ray, negative. CT shows multiple hepatic cysts. There is kidney cyst of 3.5 on the left and a right retroperitoneal hemorrhage with blood extending from the liver into the perinephric area on the right. ASSESSMENT: Retroperitoneal hemorrhage. PLAN: Admit, serial exams, serial H and H. Job ID: [id number]
[2019-07-08 21:27] LABS: Phosphorus 1.9 mg/dL (2.3-4.7)
[2019-07-08] MEDS ORDERED: Sodium Phosphate 30 MMOL in Sodium Chloride 0.9% 250 ML 250 ML IVPB SCH (22:00)
[2019-07-08] MEDS ORDERED: traMADol HCl 50 MG TAB PO PRN ×2 (22:02)
[2019-07-08] MEDS ORDERED: Magnesium 2 GM/50 ML 2 GM in Premix Bag 1 BAG IVPB SCH (22:15)
[2019-07-08 22:17] LABS: Hemoglobin 13.1 g/dL (14.0-18.0)
[2019-07-08 22:32] LABS: Anion Gap 15 mmol/L (10-20); BUN (Urea Nitrogen) 15 mg/dL (8.4-25.7); Calc. Creatinine Clearance 0 mL/min (70-130); Calcium 9.7 mg/dL (7.8-10.44); Carbon Dioxide 22 mmol/L (23-31); Chloride 109 mmol/L (98-107); Estimated GFR-MDRD 43; Glucose 176 mg/dL (83-110); Sodium 142 mmol/L (136-145)
[2019-07-08] MEDS ORDERED: Sodium Bicarbonate 150 MEQ in Dextrose 5% in Water 1,000 ML IV SCH ×2 (22:45)
[2019-07-08 23:13] VITALS: BMI 32.5
[2019-07-08] MEDS: Tamsulosin HCl 0.4 MG CAP PO SCH (23:53)
--- NOTE | 2019-07-09 00:43 | HP ---
PRIMARY CARE PROVIDER: Preet Jett MD CHIEF COMPLAINT: Fall from standing. HISTORY OF PRESENT ILLNESS: This is a 79-year-old gentleman, who presented to the emergency room after a ground-level fall approximately around noon today. The patient states that he walked down a steep [place] when he lost his balance causing him to fall forward onto his face. The patient denies feeling weak, dizzy, chest pain, or shortness of breath prior to falling. There was a family member with him who helped him get up off the ground. When he was walking back to his house, he stepped on a rock causing him to fall again catching himself with his knees and hands. The patient again had no loss of consciousness and recalls the events. The patient complains of facial pain, low back pain, and left thumb pain. The patient sustained multiple abrasions to his face and nose. The patient also had a right eyebrow laceration that was repaired with glue in the emergency room. The patient was given 1 L of normal saline in the ER. The patient reports his tetanus is up to date as he had it less than five years ago. The patient does take Eliquis daily for atrial fibrillation. REVIEW OF SYSTEMS: A 10-point review of systems is negative unless otherwise indicated in the above HPI. PAST MEDICAL HISTORY: Coronary artery disease, cardiac stents, status post coronary artery bypass graft; diabetes type 2; hypertension; benign prostate hyperplasia; dyslipidemia; and atrial fibrillation. PAST SURGICAL HISTORY: Coronary artery bypass graft, tonsillectomy, and PCI with stents. SOCIAL HISTORY: Current smoker, has cut back to 1-1/2 packs a week. The patient has been smoking since he was 17. Denies alcohol use. Denies any illicit drug use. The patient lives at home with his . ALLERGIES: NO KNOWN DRUG ALLERGIES. CURRENT MEDICATIONS: 1. Eliquis 5 mg p.o. b.i.d. 2. Aspirin 81 mg p.o. daily. 3. Lipitor 40 mg p.o. at bedtime. 4. Vitamin D3 1250 mcg p.o. daily. 5. Vitamin B12 1000 mcg p.o. daily. 6. Ranexa 1000 mg p.o. b.i.d. 7. Wellbutrin 150 mg p.o. daily. 8. Isosorbide 30 mg p.o. daily. 9. Lisinopril 10 mg p.o. daily. 10. Protonix 40 mg daily. 11. Tamsulosin 0.4 mg p.o. at bedtime. PHYSICAL EXAMINATION: VITAL SIGNS: Blood pressure 121/79, temperature 98.2, pulse 86, SpO2 100% on room air, respirations 16. GENERAL: Elderly male, awake, alert, in no distress, and oriented to person, place, and event. HEENT: Multiple abrasions to the right side of face and nose, laceration to right eyebrow, closed with glue, well approximated. No active bleeding. Mucous membranes are moist. Midface is stable. Pupils are equal bilateral, extraocular muscles intact. Ecchymoses under right eye. NECK: Nontender. Normal range of motion. Trachea is midline. No JVD. RESPIRATORY: Good inspiratory and expiratory effort. Bilateral breath sounds are clear with no wheezing, rales, or rhonchi. No obvious chest deformity. CARDIOVASCULAR: Irregularly irregular, no murmurs, no pedal edema. ABDOMEN: Soft, nontender. Active bowel sounds. No peritoneal signs. PELVIS: Stable. EXTREMITIES: Moves all extremities, strength 5/5, distal pulses 2+ in all extremities. Left thumb swelling with positive range of motion. Abrasion over right forearm. Tenderness in lower back. No obvious deformities. NEUROLOGIC: No focal deficits. Positive sensation and movement intact in all extremities. GCS 15. LABORATORY DATA: WBC 10.9, RBC 4.20, hemoglobin 14.1, hematocrit 41.0, platelets 114. PT 16.4, INR 1.3, APTT 28.2. Sodium 138, potassium 4.1, chloride 108, carbon dioxide 22, anion gap 12, BUN 14, creatinine 1.65, estimated GFR 41, glucose 209 , calcium 9.7, phosphorus 1.9, magnesium 1.8, total bilirubin 0.8, AST 67, ALT 78, alkaline phosphate 92. CK 67. Troponin I 0.010. Albumin 3.7. DIAGNOSTIC DATA: 1. Head CT shows no evidence of intracranial hemorrhage. Right orbital floor fracture. 2. Cervical spine CT; no evidence for fracture or traumatic subluxation. 3. Facial bone CT; nondisplaced orbital floor and posterior wall maxillary sinus fractures on the right. 4. Lumbar spine CT; no evidence for acute osseous abnormalities involving the lumbar spine. 5. Abdomen and pelvis CT with contrast; there is retroperitoneal hematoma with blood straining about the right hepatic lobe, right adrenal and periphrenic area. There is also a left 3 cm common iliac aneurysm. Multiple hepatic cysts. There is a kidney cyst of 3.5 on the left and a right retroperitoneal hemorrhage with blood extending from the liver into the periphrenic area on the right. 6. Elbow x-ray is negative. 7. Hand x-ray negative. 8. Chest x-ray, impression; no acute cardiopulmonary process. ASSESSMENT: 1. Status post fall from incline. No loss of consciousness. 2. Right orbital floor and maxillary sinus fracture. 3. Right retroperitoneal hematoma with hemorrhage at the right hepatic lobe, right adrenal and periphrenic area. 4. Facial abrasions and laceration, repaired with glue in the ER. 5. Incidental finding of a 3 cm left common iliac aneurysm and multiple hepatic cysts. 6. Chronic kidney disease stage 3. 7. History of atrial fibrillation. 8. Coronary artery disease, daily Eliquis use. 9. Benign prostatic hypertrophy. 10. Hypertension. 11. Diabetes type 2. 12. Cardiac stents. 13. Dyslipidemia. 14. Coronary artery bypass graft. PLAN: Admit patient to the surgical floor with serial abdominal exams and repeat hemoglobin and hematocrit in 6 hours and again a.m. labs. Pain control, clear liquid diet as tolerated and replace electrolytes. Change maintenance fluids to bicarb drip 120ml hour as the patient's bicarb is low and chloride is elevated. The patient did receive IV contrast and has a history of chronic kidney disease. We will monitor urinary output and blood pressure. Restart home blood pressure medications with hold parameters. Restart Flomax. We will hold the patient's Eliquis. Oral Maxillofacial Surgery, Dr. Charlton was consulted and will see the patient. The patient was examined by Dr. Sol in the emergency room and plan was discussed. Job ID: [id number] [facility]
[2019-07-09] MEDS: Acetaminophen 500 MG TAB PO SCH ×6 (01:00→23:51)
[2019-07-09] MEDS: Tamsulosin HCl 0.4 MG CAP PO SCH (01:21)
[2019-07-09] MEDS: Morphine 2 MG/ML SYRINGE SLOW IVP PRN ×2 (01:36→03:11)
[2019-07-09 06:02] LABS: #Lymphocytes 0.7 thou/uL (1.20-3.40); #Monocytes 0.6 thou/uL (0.11-0.59); #Neutrophils 9.8 thou/uL (1.40-6.50); %Basophils 0.1 % (0.0-1.0); %Eosinophils 0.4 % (0.0-10.0); %Lymphocytes 6.5 % (21.0-51.0); %Monocytes 5.3 % (0.0-10.0); %Neutrophils 87.7 % (42.0-75.0); Hemoglobin 11.5 g/dL (14.0-18.0); Mean Corpuscular HGB CONC 34.6 g/dL (32.0-36.0); Mean Corpuscular Hemoglobin 33.5 pg (27.0-31.0); Mean Corpuscular Volume 96.8 fL (78.0-98.0); Mean Platelet Volume 8.6 fL (7.4-10.4); Platelet Count 116 thou/uL (130-400); RBC Distribution Width 12.8 % (11.5-14.5); Red Blood Cell (RBC) Count 3.44 mill/uL (4.70-6.10); White Blood Cell (WBC) Count 11.2 thou/uL (4.8-10.8)
[2019-07-09 06:25] LABS: Anion Gap 12 mmol/L (10-20); BUN (Urea Nitrogen) 17 mg/dL (8.4-25.7); Calc. Creatinine Clearance 64 mL/min (70-130); Calcium 9.1 mg/dL (7.8-10.44); Carbon Dioxide 24 mmol/L (23-31); Chloride 109 mmol/L (98-107); Estimated GFR-MDRD 46; Glucose 177 mg/dL (83-110); Magnesium 2.3 mg/dL (1.6-2.6); Potassium 4.2 mmol/L (3.5-5.1); Sodium 141 mmol/L (136-145)
[2019-07-09 06:26] LABS: Phosphorus 4.8 mg/dL (2.3-4.7)
[2019-07-09] MEDS: buPROPion HCl 100 MG TAB PO SCH (08:11)
[2019-07-09] MEDS: Isosorbide Mononitrate (ER) 30 MG TAB PO SCH (08:11)
[2019-07-09] MEDS: Lisinopril 10 MG TAB PO SCH (08:12)
[2019-07-09] MEDS: Senokot S 8.6-50 MG TAB PO SCH ×2 (08:13→21:37)
[2019-07-09] MEDS: Bacitracin 1 PK TOP SCH (08:13)
[2019-07-09] MEDS ORDERED: Polyethylene Glycol 3350 17 GM Packet PO SCH (11:00)
[2019-07-09] MEDS: Insulin Regular 300 UNITS/3 ML VIAL SC PRN (18:03)
[2019-07-09] MEDS ORDERED: Tamsulosin HCl 0.4 MG CAP PO SCH (21:00)
[2019-07-09] MEDS ORDERED: Senokot S 8.6-50 MG TAB PO SCH (21:00)
--- NOTE | 2019-07-10 02:26 | PRG ---
DATE OF SERVICE: 07/10/2019 SUBJECTIVE: The patient is hospital day #2 status post a fall down an incline, which he sustained facial fractures and a right retroperitoneal hematoma. The patient's injuries were compounded by his Eliquis use. He also has multiple other comorbidities to include hypertension, diabetes, coronary artery disease and atrial fibrillation in addition to chronic kidney disease. The patient's injuries are all being treated nonoperatively. He is awaiting placement to rehab. The patient is tolerating a diet. His pain is controlled. He is making adequate urine, but has not had a bowel movement. PHYSICAL EXAMINATION: VITAL SIGNS: Stable. The patient is afebrile. GENERAL: The patient at the time of my visit was returning from the bathroom. He was ambulating without assistance. He appeared steady. He was awake, alert, and oriented. Slaughter Coma Scale is 15. HEENT: The patient has multiple abrasions and lacerations on his face that have been repaired. They do not show any signs of infection. Remainder of his HEENT is unremarkable. LUNGS: Respirations are nonlabored. ABDOMEN: Flat, nondistended. EXTREMITIES: Neurovascularly intact x4. ASSESSMENT: 1. Status post fall down an incline. 2. Facial fractures, stable, treated nonoperatively. 3. Right retroperitoneal hematoma, stable. 4. Multiple facial abrasions, lacerations, stable. 5. Multiple comorbidities. PLAN: Plan will be to continue supportive care. Encourage physical and occupational therapy and await final placement decision. The patient also had lactulose added to his medications to assist in his bowel function. Job ID: [id number]
[2019-07-10] MEDS: Acetaminophen 500 MG TAB PO SCH ×2 (05:15→10:33)
[2019-07-10] MEDS: Insulin Regular 300 UNITS/3 ML VIAL SC PRN ×2 (05:31→10:32)
[2019-07-10 05:49] LABS: #Basophils 0.1 thou/uL (0.0-0.2); #Eosinphils 0.2 thou/uL (0.0-0.7); #Lymphocytes 1.8 thou/uL (1.20-3.40); #Monocytes 1.2 thou/uL (0.11-0.59); #Neutrophils 11.9 thou/uL (1.40-6.50); %Basophils 0.3 % (0.0-1.0); %Eosinophils 1.3 % (0.0-10.0); %Lymphocytes 11.6 % (21.0-51.0); %Monocytes 7.8 % (0.0-10.0); Mean Corpuscular HGB CONC 32.6 g/dL (32.0-36.0); Mean Corpuscular Hemoglobin 32.2 pg (27.0-31.0); Mean Corpuscular Volume 98.5 fL (78.0-98.0); Mean Platelet Volume 8.8 fL (7.4-10.4); Platelet Count 144 thou/uL (130-400); RBC Distribution Width 13.1 % (11.5-14.5); Red Blood Cell (RBC) Count 3.41 mill/uL (4.70-6.10); White Blood Cell (WBC) Count 15.1 thou/uL (4.8-10.8)
--- NOTE | 2019-07-10 07:12 | PRG ---
DATE OF SERVICE: 07/09/2019 This is Meng Obando PA-C dictating a report for Uvaldo Pack DO. SUBJECTIVE: Mr. Pena is a 79-year-old male, presented to the ED after a mechanical fall. He sustained facial fracture including right orbital floor fracture and maxillary sinus fracture. Patient facial fracture is none operation per Dr. Charlton. The patient also suffered from right retroperitoneal hematoma with hemorrhage in the right hepatic lobe, right adrenal and perinephric area. The patient is hemodynamically stable and hemoglobin dropped marginally. The patient also has history of chronic kidney disease, coronary artery disease has been stable. His kidney function is actually improved. The patient reports pain is well controlled. He is not yet working with Physical Therapy, Occupational Therapy. The patient tolerated his regular diet and his vital signs have been stable. OBJECTIVE: GENERAL: Currently patient lying in bed comfortable with no acute respiratory distress. VITAL SIGNS: Stable. Vital signs this morning showed temperature 97.8, heart rate 88, respiratory rate 16, O2 saturation 99% on 2 L, and blood pressure 107/73. HEENT: Facial contusion stable. Pupil is 3 mm, equal bilaterally. NECK: Trachea midline. Nontender to palpation. CHEST: Atraumatic. LUNGS: Clear bilaterally. HEART: Regular rate and rhythm. ABDOMEN: Soft, nondistended. EXTREMITIES: Neurovascularly intact x4. The right thumb is in splint. NEUROLOGY: No focal neurology deficits. ASSESSMENT: 1. Status post mechanical fall. 2. Facial fracture includes right orbital floor fracture and maxillary sinus fracture, conservative treatment per Dr. Charlton. 3. Right retroperitoneal hematoma, hemorrhage of the right hepatic lobe, right adrenal and perinephric area, stable. We will check complete blood counts tomorrow and close monitor vital signs. 4. Chronic kidney disease, improved. 5. History of coronary artery disease, atrial fibrillation, hypertension, benign prostatic hypertrophy, all have been stable. PLAN: Plan will be continue supportive care. Continue pain control. Discontinue bicarb. 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 We will check with Dr. Oro on plan to resume Eliquis. Connor was seen and evaluated with Dr. Pack on round this morning. Job ID: [id number] [facility]
[2019-07-10 07:41] VITALS: BP 118/75; TEMP 98.3
[2019-07-10] MEDS ORDERED: Polyethylene Glycol 3350 17 GM Packet PO SCH (09:00)
[2019-07-10] MEDS ORDERED: Apixaban 5 MG TAB PO SCH (09:00)
[2019-07-10] MEDS: buPROPion HCl 100 MG TAB PO SCH (09:31)
[2019-07-10] MEDS: Bacitracin 1 PK TOP SCH (09:31)
[2019-07-10] MEDS: Isosorbide Mononitrate (ER) 30 MG TAB PO SCH (09:31)
[2019-07-10] MEDS: Lisinopril 10 MG TAB PO SCH (09:32)
[2019-07-10] MEDS: Senokot S 8.6-50 MG TAB PO SCH (09:33)
--- NOTE | 2019-07-10 13:26 | EKG ---
Test Reason : Blood Pressure : / mmHG Vent. Rate : 073 BPM Atrial Rate : 085 BPM P-R Int : 000 ms QRS Dur : 142 ms QT Int : 440 ms P-R-T Axes : 000 -43 051 degrees QTc Int : 484 ms Atrial fibrillation Left axis deviation Right bundle branch block Abnormal ECG Confirmed by PERFECTO GUTIERREZ ([id number]), order editor GO PAVON ([id number]) on 07/10/2019 1:25:43 PM Referred By: Confirmed By:PERFECTO GUTIERREZ
== END 2019-07-10 11:20 | DRG 964 ==
LOC: ERS 14:52 → SURG A 19:35
PROVIDERS: ADMIT Surgery; ATTEND Surgery
PROC: 0HQ1XZZ Repair Face Skin, External Approach (ICD-10-PCS; principal; 2019-07-08)
DX: S36.892A Contusion of other intra-abdominal organs, initial encounter (principal); S02.31XA Fracture of orbital floor, right side, initial encounter for closed fracture; S37.818A Other injury of adrenal gland, initial encounter; S02.40CA Maxillary fracture, right side, initial encounter for closed fracture; S00.31XA Abrasion of nose, initial encounter; S01.111A Laceration without foreign body of right eyelid and periocular area, initial encounter; N18.3 Chronic kidney disease, stage 3 (moderate); I12.9 Hypertensive chronic kidney disease with stage 1 through stage 4 chronic kidney disease, or unspecified chronic kidney disease; E11.22 Type 2 diabetes mellitus with diabetic chronic kidney disease; I72.3 Aneurysm of iliac artery; S36.119A Unspecified injury of liver, initial encounter; W17.89XA Other fall from one level to another, initial encounter; I25.10 Atherosclerotic heart disease of native coronary artery without angina pectoris; N40.0 Benign prostatic hyperplasia without lower urinary tract symptoms; E78.5 Hyperlipidemia, unspecified; I48.91 Unspecified atrial fibrillation; E78.00 Pure hypercholesterolemia, unspecified; F17.220 Nicotine dependence, chewing tobacco, uncomplicated; Z95.1 Presence of aortocoronary bypass graft; Y92.89 Other specified places as the place of occurrence of the external cause; Z79.82 Long term (current) use of aspirin; Z79.899 Other long term (current) drug therapy; Z79.01 Long term (current) use of anticoagulants; Z95.5 Presence of coronary angioplasty implant and graft
CPT/HCPCS: 36415; 36416; 70450; 70486; 71045; 72125; 72131; 74177; 80048; 80053; 82533; 82550; 83735; 84100; 84484; 85025; 85610; 85730; 90715; 93005; J1815; J2270; J3475; J7050; J7070; Q9967

== ENCOUNTER 2019-10-02 14:07 | Inpatient (IN) | payer MEDICARE, BC ==
[2019-10-02] MEDS ORDERED: Adacel (T-DAP) 0.5 ML SYRINGE ONE (14:23)
--- NOTE | 2019-10-02 14:35 | CT ---
EXAM: CT brain without contrast HISTORY: Fall while working in a garage COMPARISON: 07/08/2019 TECHNIQUE: Multiple contiguous axial images were obtained and a CT of the brain without contrast. FINDINGS: There are scattered hypodensities in the subcortical and periventricular white matter consi stent with small vessel ischemic disease. There is a small amount of subdural blood along the falx measuring 7 mm in thickness. There is no evidence of hydrocephalus There is left posterior soft tissue swelling. The underlying calvarium is unremarkable. The visualize d paranasal sinuses and mastoid air cells are well aerated. IMPRESSION: Subdural hemorrhage along the falx as above Dr. Ruiz notified of findings at 2:32 PM on 10/02/2019.
--- NOTE | 2019-10-02 14:46 | CT ---
CT CERVICAL SPINE NONCONTRAST: CT CERVICAL SPINE NONCONTRAST: DATE: 10/02/2019 HISTORY: 79-year-old male status post acute cervical trauma from fall. This level 2 trauma report was called by Dr. Sethi to Dr. Ruiz of the emergency Department at 2:43 PM FINDINGS: There are no jumped or perched facets. There is no evidence of acute fracture. The vertebral body hei ghts are maintained. There is no prevertebral soft tissue swelling. There are degenerative disc changes and facet osteoarthrosis. There are several levels of severe central spinal canal stenosis an d severe neural foraminal stenosis bilaterally, worst at C5-6. 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 2) no evidence of acute fracture or acute traumatic subluxation.
[2019-10-02 15:01] LABS: #Eosinphils 0.1 thou/uL (0.0-0.7); #Monocytes 0.6 thou/uL (0.11-0.59); #Neutrophils 8.4 thou/uL (1.40-6.50); %Basophils 0.3 % (0.0-1.0); %Eosinophils 1.3 % (0.0-10.0); %Lymphocytes 9.9 % (21.0-51.0); %Monocytes 5.4 % (0.0-10.0); %Neutrophils 83.2 % (42.0-75.0); Hemoglobin 15.1 g/dL (14.0-18.0); Mean Corpuscular HGB CONC 32.5 g/dL (32.0-36.0); Mean Corpuscular Hemoglobin 31.1 pg (27.0-31.0); Mean Corpuscular Volume 95.6 fL (78.0-98.0); Mean Platelet Volume 8.5 fL (7.4-10.4); Platelet Count 146 thou/uL (130-400); RBC Distribution Width 13.7 % (11.5-14.5); Red Blood Cell (RBC) Count 4.85 mill/uL (4.70-6.10); White Blood Cell (WBC) Count 10.1 thou/uL (4.8-10.8)
--- NOTE | 2019-10-02 15:06 | CT ---
CT THORACIC SPINE: 10/02/19 Axial tomograms obtained with multiplanar reconstructions. INDICATIONS: Fall. Level II trauma. FINDINGS: There are degenerative changes seen throughout the thoracic spine. Anterior and lateral osteophytes a re seen at multiple levels. There is mild wedging of mid thoracic vertebrae; however, this appears ch ronic with anterior bridging osteophytes at these levels. There is no evidence of acute compression o r acute fracture identified involving the thoracic spine. There is no evidence of central canal stenosis or significant disc protrusion. Review of the soft tissues shows chronic lung parenchymal changes with no evidence of effusion or pn eumothorax. Images obtained through the upper and mid abdomen show a mass in the right retroperitoneum in the par aspinal region which may involve the right psoas muscle. This measures approximately 5 cm AP dimensi on. It may displace or involve the right kidney, although the right kidney is not imaged on this stud y. Hematoma would be suspected given history of trauma. There is a cystic lesion from the posterior left kidney which is imaged. There is a cystic lesion inf erior posterior liver measuring approximately 1 cm. There is a subcutaneous mass in the subcutaneous tissues of the lower chest measuring 3 cm which abut s the dermal surface and probably represents a epidermal inclusion cyst. IMPRESSION: 1. Prominent degenerative changes of the thoracic spine without evidence of thoracic spine compr ession or fracture. 2. Soft tissue mass in the right retroperitoneum which may involve the right psoas muscle or pos sibly the right kidney. This is incompletely evaluated on this study. Hematoma would be suspected. Fu rther evaluation with CT abdomen is recommended and this was discussed with Dr. Ruiz. There are other soft tissues findings as described above. Code CR
[2019-10-02 15:07] LABS: INR-International Normal Ratio 1.4; PTT 29.1 sec (22.9-36.1); Prothrombin Time 16.9 sec (12.0-14.7)
[2019-10-02 15:21] LABS: ALT (SGPT) 13 U/L (8-55); AST (SGOT) 14 U/L (5-34); Albumin 4.4 g/dL (3.4-4.8); Alkaline Phosphatase 107 U/L (40-110); Anion Gap 10 mmol/L (10-20); BUN (Urea Nitrogen) 16 mg/dL (8.4-25.7); Bilirubin, Total 0.6 mg/dL (0.2-1.2); Calc. Creatinine Clearance 0 mL/min (70-130); Calcium 10.4 mg/dL (7.8-10.44); Carbon Dioxide 26 mmol/L (23-31); Chloride 108 mmol/L (98-107); Estimated GFR-MDRD 47; Globulin 3.2 g/dL (2.4-3.5); Glucose 124 mg/dL (83-110); Potassium 4.2 mmol/L (3.5-5.1); Protein, Total 7.6 g/dL (5.8-8.1); Sodium 140 mmol/L (136-145)
[2019-10-02] MEDS ORDERED: HUM PROTHROMBIN CPLX IV SCH (15:30)
[2019-10-02] MEDS ORDERED: [UNRECOGNIZED DRUG - OTHER] IV SCH (15:30)
[2019-10-02] MEDS ORDERED: ADMIXTURE FEE IV SCH (15:30)
--- NOTE | 2019-10-02 16:00 | CT ---
CT chest with IV contrast CT abdomen and pelvis with IV contrast HISTORY: Fall. Chest injury. Abdomen injury. Back injury. COMPARISON: 07/08/2019. CT thoracic spine 10/02/2019. FINDINGS: No evidence of pneumothorax, or pleural fluid, or mediastinal hematoma. There are postopera tive changes of the mediastinum. Calcification throughout the arterial structures. Old healed fractures of the right clavicle and left ribs. Subcutaneous sebaceous cystic lesions are present at t he mid upper back. Multiple cysts again demonstrated throughout the liver, similar in appearance to the prior study. Mul tiple hyperdense stones in the dependent portion of the gallbladder lumen. At the right adrenal gland, a lobular heterogeneous fluid density lesion is 6.1 cm x 5.4 cm x 4.6 cm greatest diameters. It is surrounded by a small amount of fat stranding. There was a much larger and ill-defined area of blood on the prior CT from 07/08/2019. Cysts of the superior aspect of the left kidney is 3.7 cm greatest diameter. Fusiform ectasia lower abdominal aorta is again seen up to 3.0 cm. Focal area of plaque ulceration al sabra the right side of the lower abdominal aorta is stable. The 2.8 cm cystic aneurysm involving the left iliac artery is unchanged in appearance. Prostate gland remains enlarged at 7.0 cm. There are degenerative changes throughout the lumbar spine. 1.1 cm spondylolisthesis at the lumbosacr al junction is evident. IMPRESSION : The right retroperitoneal suprarenal lesion is favored to represent retraction and partial resolution of the large retroperitoneal hemorrhage from June 2019. No ongoing hemorrhage is suspected. Cholelithiasis. Atherosclerosis. Left iliac artery aneurysm and other findings are stable. Findings were called to Dr. Merchant in the emergency department at 1550 hours. Code CR.
--- NOTE | 2019-10-02 17:22 | HP ---
REQUESTING PHYSICIAN: Dr. Ruiz. ATTENDING SURGEON: Dr. Pack. CONSULTATIONS: Neurosurgery, Dr. Albarado. HISTORY OF PRESENT ILLNESS: The patient is a 79-year-old man, who was brought to the emergency room as a level 2 trauma activation. He was reportedly working in his garage removing a vehicle from a hitch when he is unsure what happened, but he knows he woke up on the floor with posterior head pain and bleeding. He was brought to the emergency department where he underwent evaluation and examination, was noted to have subdural hematoma. Of significance is that the patient is on Eliquis, at which time, we were asked to evaluate the patient for admission and obtain Neurosurgical consultation. ALLERGIES: NONE. CURRENT MEDICATIONS: 1. Eliquis. 2. Aspirin. 3. Lipitor. 4. Multivitamins. 5. Ranexa. 6. Wellbutrin. 7. Isosorbide. 8. Lisinopril. 9. Protonix. 10. Tamsulosin. PAST MEDICAL HISTORY: Coronary artery disease, cardiac stents, type 2 diabetes, hypertension, BPH, dyslipidemia, and atrial fibrillation. PAST SURGICAL HISTORY: Coronary artery bypass graft, tonsillectomy, and PCI with stent. SOCIAL HISTORY: The patient lives at home with his . He generally denies drugs or alcohol. He has a smoking history since age 17 and reports that he is currently smoking 1-1/2 packs of cigarettes per week. REVIEW OF SYSTEMS: 10-point review of systems is negative as otherwise stated. PHYSICAL EXAMINATION: VITAL SIGNS: Blood pressure 127/85, heart rate 77, respirations 18, oxygen saturation is 99% on room air, and temperature is 97.7. GENERAL: The patient is resting comfortably in the ER bed. He is awake, alert, conversant. His Yanick Coma Scale is 14, -1 for confusion. HEENT: Head is normocephalic with approximately 3 cm laceration to the occiput area that is being repaired by emergency room physician. Eyes, extraocular motion intact. PERRLA bilaterally. Ears are atraumatic without discharge. Nose is atraumatic without discharge. Oropharynx is clear. NECK: Nontender. Trachea is midline. No JVD. CHEST: Clear to auscultation with good inspiratory and expiratory effort. HEART: Regular rate and rhythm. ABDOMEN: Soft, flat, nontender with active bowel sounds. EXTREMITIES: Neurovascularly intact x4. BACK: Atraumatic and nontender. LABORATORY FINDINGS: White blood cell count 10.1, hemoglobin 15.1, hematocrit 46.4, platelets 146. Sodium 140, potassium 4.2, chloride 108, CO2 of 26, BUN 16, creatinine 1.46, glucose 124. PT 16.9, INR 1.4, PTT 29. RADIOGRAPHIC REPORTS: CT of the brain without contrast shows a subdural hemorrhage along the falx measuring [address] of the C-spine without contrast shows no evidence of acute fracture or traumatic subluxation. CT of the chest, abdomen, pelvis, and thoracic spine with IV contrast shows a right retroperitoneal suprarenal lesion is favored to represent retraction and partial resolution of the large retroperitoneal hemorrhage from June 2019. No ongoing hemorrhage suspected. ASSESSMENT: 1. Status post ground level fall, on Eliquis. 2. Subdural hemorrhage. 3. Altered mental status secondary to above. 4. History of Eliquis use. 5. Scalp laceration repaired in the emergency department. 6. History of coronary artery disease with stents. 7. Type 2 diabetes. 8. Hypertension. 9. Hyperlipidemia. 10. Benign prostatic hypertrophy. PLAN: Will be to admit the patient to the [facility] for frequent neuro checks. The patient did receive a tetanus shot and Kcentra in the emergency department. We will repeat his head CT in the morning, sooner as indicated. We will do pulmonary toilet, gastritis, mechanical VTE prophylaxis, and nonnarcotic pain medications. The patient was evaluated in the emergency department with Dr. Pack and Dr. French has been notified of the patient. Job ID: [id number]
[2019-10-02] MEDS ORDERED: Dextrose 5% in Water 1,000 ML IV PRN (19:37)
[2019-10-02] MEDS ORDERED: Ondansetron PF 4 MG/2 ML Vial IVP PRN (19:37)
[2019-10-02] MEDS ORDERED: hydrALAZINE 20 MG/ML VIAL SLOW IVP PRN (19:37)
[2019-10-02] MEDS ORDERED: Dextrose 50% Abboject 50 ML SYRINGE SLOW IVP PRN (19:37)
[2019-10-02] MEDS ORDERED: traMADol HCl 50 MG TAB PO PRN (19:37)
[2019-10-02] MEDS ORDERED: Ondansetron ODT 4 MG TAB PO PRN (19:37)
[2019-10-02 19:57] VITALS: BMI 27.1
[2019-10-02] MEDS: Sodium Chloride 0.9% 1,000 ML IV SCH (20:11)
[2019-10-02] MEDS: Famotidine 20 MG TAB PO SCH (20:12)
[2019-10-02 20:14] LABS: Phosphorus 1.9 mg/dL (2.3-4.7)
[2019-10-02] MEDS ORDERED: PHOS-NAK 1 PKT PACK PO SCH (21:00)
[2019-10-02] MEDS: Acetaminophen 500 MG TAB PO SCH (23:17)
--- NOTE | 2019-10-03 00:55 | CON ---
DATE OF CONSULTATION: 10/02/2019 HISTORY OF PRESENT ILLNESS: Mr. Pena is a 79-year-old gentleman who presented to the emergency department this afternoon. The events surrounding his reason for presentation are unclear, but apparently he was working in his garage and the next thing he remembers is waking up on the ground with pain in the back of his head. Per ED report, the patient was neurologically intact, alert and oriented x3 when evaluated upon arrival. CT of the brain without contrast revealed an acute left-sided parafalcine traumatic subdural hematoma measuring approximately [address] of the cervical spine was negative for acute fractures, subluxation, or other acute processes. However, it did reveal cervical spondylosis and osteophytic growth, most significant at the C5-C6 level with protrusion into the central canal with resulting stenosis. CT of the thoracic spine was negative for any acute processes, however it revealed multilevel anterior bridging osteophyte consistent with DISH, and ankylosing spondylitis variant. Evaluation of the lumbar spine on CT of the chest, abdomen and pelvis was negative for acute abnormalities, but displayed chronic degenerative changes with grade 1 anterolisthesis of L5 on S1 and vacuum disk phenomenon noted in the disk spaces of L4-L5 and L5-S1. IMPRESSION AND DIAGNOSES: 1. Head injury status post ground level fall, on Eliquis. 2. Acute left parafalcine traumatic subdural hematoma. 3. Scalp laceration, repaired. 4. History of coronary artery disease, history of stents. 5. Type 2 diabetes. 6. Hypertension. 7. Hyperlipidemia. 8. Benign prostatic hypertrophy. PLAN: The case was discussed and imaging reviewed with Dr. French. He agrees with the imaging finding as noted above. No neurosurgical intervention indicated at this time. The patient will be admitted to the [facility] with frequent neurologic checks. Hold Eliquis. A repeat CT of the brain without contrast will be obtained in the morning for reevaluation, or sooner if indicated. Further workup of degenerative changes of the spine can be pursued outpatient on an as-needed basis. Our team will continue to follow the patient and evaluate him in the morning. Please call Neurosurgery for any questions or concerns. Job ID: [id number] MTDD
[2019-10-03] MEDS: Sodium Chloride 0.9% 1,000 ML IV SCH (03:09)
[2019-10-03 03:35] LABS: #Eosinphils 0.2 thou/uL (0.0-0.7); #Lymphocytes 1.6 thou/uL (1.20-3.40); #Monocytes 0.6 thou/uL (0.11-0.59); #Neutrophils 5.8 thou/uL (1.40-6.50); %Basophils 0.6 % (0.0-1.0); %Eosinophils 2.7 % (0.0-10.0); %Lymphocytes 19.3 % (21.0-51.0); %Monocytes 6.9 % (0.0-10.0); %Neutrophils 70.5 % (42.0-75.0); Hemoglobin 14.9 g/dL (14.0-18.0); Mean Corpuscular HGB CONC 32.9 g/dL (32.0-36.0); Mean Corpuscular Hemoglobin 31.4 pg (27.0-31.0); Mean Corpuscular Volume 95.3 fL (78.0-98.0); Mean Platelet Volume 8.5 fL (7.4-10.4); Platelet Count 141 thou/uL (130-400); RBC Distribution Width 13.8 % (11.5-14.5); Red Blood Cell (RBC) Count 4.75 mill/uL (4.70-6.10); White Blood Cell (WBC) Count 8.2 thou/uL (4.8-10.8)
[2019-10-03 04:13] LABS: Anion Gap 13 mmol/L (10-20); BUN (Urea Nitrogen) 14 mg/dL (8.4-25.7); Calc. Creatinine Clearance 61 mL/min (70-130); Calcium 10.1 mg/dL (7.8-10.44); Carbon Dioxide 18 mmol/L (23-31); Chloride 109 mmol/L (98-107); Estimated GFR-MDRD 54; Glucose 128 mg/dL (83-110); Phosphorus 2.9 mg/dL (2.3-4.7); Potassium 4.2 mmol/L (3.5-5.1); Sodium 136 mmol/L (136-145)
[2019-10-03] MEDS: Acetaminophen 500 MG TAB PO SCH ×3 (06:00→21:23)
[2019-10-03 06:31] LABS: INR-International Normal Ratio 1.3; PTT 30.6 sec (22.9-36.1); Prothrombin Time 16.2 sec (12.0-14.7)
--- NOTE | 2019-10-03 07:43 | CT ---
PRELIMINARY REPORT/[facility]/EMERGENCY AFTER HOURS PROCEDURE Receipt of this report by the clinical staff was confirmed with Griselda Archibald RN by Fernanda Velasquez on Oct 03, 2019 04:52:00 CDT. Addendum electronically signed by Fernanda Velasquez on October 03, 2019 4:53:06 AM CDT EXAM: CT Head Without Intravenous Contrast. CLINICAL HISTORY: Follow up bleed. TECHNIQUE: Axial computed tomography images of the head/brain without intravenous contrast. COMPARISON: None provided. FINDINGS: BRAIN: There is acute subdural hematoma along the left side of the falx cerebri measuring about 10 mm in thi ckness. No intra-axial fluid collection. There is a mild age appropriate brain atrophy with mild periventricular white matter disease. VENTRICLES: No hydrocephalus. ORBITS: The orbits are unremarkable. SINUSES AND MASTOIDS: The paranasal sinuses and mastoid air cells are clear. SOFT TISSUES: There is soft tissue swelling in the left the parietal region with soft tissue laceration. BONES: No acute skull fracture. IMPRESSION: 1. There is soft tissue swelling in the left the parietal region with soft tissue laceration. 2. There is acute subdural hematoma along the left side of the falx cerebri measuring about 10 mm in thickness. ELECTRONICALLY SIGNED BY: Norma Benson MD Oct 03, 2019 4:43:04 AM CDT This report is intended for review by the ordering physician only, in accordance of law. If you recei ve this report in error, please call [facility] at [phone]. FINAL REPORT Exam: Head CT without contrast HISTORY: Follow-up intracranial hemorrhage COMPARISON: 10/02/2019 FINDINGS: Hemorrhage: Slightly increasing left parafalcine hematoma, measuring 1 cm. Brain parenchyma: Increased mass effect upon the medial left frontal lobe. No midline shift.Stable ch ronic small vessel ischemic changes. Ventricular system: Ventricles and sulci are patent and symmetric. Calvarium: Intact. Sinuses and mastoid air cells: Posttraumatic changes in the left scalp. IMPRESSION: 1. This report is in agreement with initial report by [facility]. 2. Interval slight increase of a left parafalcine hematoma. Continued surveillance is recommended. Transcribed Date/Time: 10/03/2019 8:09 AM
[2019-10-03] MEDS: Famotidine 20 MG TAB PO SCH ×2 (08:47→19:51)
--- NOTE | 2019-10-03 11:23 | PRG ---
DATE OF SERVICE: 10/03/2019 This is a 30-minute initial visit note, in which 30 minutes were spent reviewing the imaging record, evaluation, examination, patient formulation of plan. Greater than 50% of time was spent in counseling on Connor Pena. I reviewed the notes of my colleague, Ladan Mcclelland PA-C, and agrees with its content. Mr. Pena fell in his garage, sustained a falcine acute subdural hematoma, on Eliquis. This expanded slightly to involve layering along the tentorium. The patient, however, has remained neurologically intact. His scans are subsequent that would be fine with dismissal as long as he meets criteria. We will arrange for a followup head CT in 2 weeks and have educated him to remain off his blood thinners. DIAGNOSIS: Subdural hematoma. Job ID: [id number]
--- NOTE | 2019-10-03 16:02 | PRG ---
DATE OF SERVICE: 10/03/2019 SUBJECTIVE: The patient is currently on the IMCU. He is status post ground level fall, on Eliquis in which he sustained a small subdural hematoma that this morning was minimally larger. He had no issues overnight. He remained GCS 14 or 15 this morning. He is tolerating clear liquid diet. Reports his pain is controlled. PHYSICAL EXAMINATION: VITAL SIGNS: Temperature 97.6, blood pressure 143/82, heart rate 76, respirations 17, oxygen saturation 100% on room air. GENERAL: The patient is resting comfortably in bed. He is awake, alert, conversant, appropriate. His Yanick coma scale is 15 HEENT: Head is normocephalic. His sutures are in place. There is no evidence of active bleeding. Remainder of the ENT is unremarkable. LUNGS: Clear to auscultation with good inspiratory and expiratory effort. HEART: Regular rate and rhythm. ABDOMEN: Soft, flat, nontender with active bowel sounds. EXTREMITIES: Neurovascularly intact x4. LABORATORY FINDINGS: White blood cell count 8.2, hemoglobin 14.9, hematocrit 45.2, platelets 141. Sodium 136, potassium 4.2, chloride 109, CO2 is 18, BUN 14, creatinine 1.28, glucose 128, magnesium 2.0, phosphorus 2.9. RADIOGRAPHS: CT of the brain without contrast shows expanded slightly subdural hematoma now measuring 10 mm. ASSESSMENT: 1. Status post ground level fall, on Eliquis. 2. Subdural hematoma, stable. 3. Altered mental status secondary to above, resolved. 4. History of Eliquis use. 5. Scalp laceration repaired in the emergency department, stable. 6. History of coronary artery disease with stents. 7. Type 2 diabetes. 8. History of hypertension, hyperlipidemia and benign prostatic hypertrophy .. PLAN: To continue supportive care. We will keep him one more night in the hospital. Neurosurgery is in agreement with this and as long as the patient has no neurologic changes, we will be able to discharge him in the next [address] Pack did discuss with him this morning during rounds placement and the patient was fairly adamant that he be able to be discharged home as he has spouse and family nearby. Job ID: [id number]
[2019-10-03] MEDS ORDERED: Melatonin 3 MG TAB PO PRN (16:59)
[2019-10-04] MEDS: Acetaminophen 500 MG TAB PO SCH ×3 (00:05→11:34)
--- NOTE | 2019-10-04 02:36 | PRG ---
DATE OF SERVICE: 10/03/2019 SUBJECTIVE: Mr. Pena is currently in surgical floor. The patient was transferred from [facility] today. The patient reports he has been doing well. Pain is well controlled. He tolerated diet. He vital signs have been stable. Overall, he voiced no concern. OBJECTIVE: Currently patient lying in bed comfortably with no acute respiratory distress. VITAL SIGNS: Stable. LUNGS: Clear bilaterally. HEART: Regular rate and rhythm. ABDOMEN: Soft, distended. EXTREMITIES: Neurovascularly intact x4. NEUROLOGIC: No focal neurologic deficits. GCS 15. ASSESSMENT: 1. Status post ground level fall on Eliquis. 2. Subdural hematoma. 3. on repeat CT scan with no change or neurological deficits. 4. History of coronary artery disease with stent, diabetes, hypertension, and benign prostatic hypertrophy. PLAN: 1. Continue supportive care. 2. Continue pain control. 3. Non pharmacological DVT prophylaxis. 4. Anticipate discharge home tomorrow. Job ID: [id number]
[2019-10-04] MEDS: Famotidine 20 MG TAB PO SCH (08:50)
[2019-10-04 11:57] VITALS: BP 147/83; TEMP 97.6
== END 2019-10-04 13:30 | disposition home or self-care (01) | DRG 84 ==
LOC: ERS 14:07 → IMCU/EMU 15:50 → SURG B 10-03 15:38
PROVIDERS: ADMIT Surgery; ATTEND Surgery
PROC: 0HQ0XZZ Repair Scalp Skin, External Approach (ICD-10-PCS; principal; 2019-10-02)
DX: S06.5X9A Traumatic subdural hemorrhage with loss of consciousness of unspecified duration, initial encounter (principal); W18.30XA Fall on same level, unspecified, initial encounter; S01.01XA Laceration without foreign body of scalp, initial encounter; I48.91 Unspecified atrial fibrillation; I25.10 Atherosclerotic heart disease of native coronary artery without angina pectoris; E11.9 Type 2 diabetes mellitus without complications; I10 Essential (primary) hypertension; F17.210 Nicotine dependence, cigarettes, uncomplicated; N40.0 Benign prostatic hyperplasia without lower urinary tract symptoms; Z79.82 Long term (current) use of aspirin; Z79.01 Long term (current) use of anticoagulants; Z79.899 Other long term (current) drug therapy; Z95.1 Presence of aortocoronary bypass graft; Z95.5 Presence of coronary angioplasty implant and graft
CPT/HCPCS: 12002; 36415; 36416; 70450; 71260; 72125; 72128; 74177; 80048; 80053; 83735; 84100; 85025; 85610; 85730; 86850; 86900; 86901; 90471; 90715; 96374; C9132; Q9967

== ENCOUNTER 2021-10-11 17:38 | Inpatient (IN) | payer MEDICARE, BC ==
[2021-10-11 21:10] VITALS: BMI 26.8
[2021-10-11] MEDS ORDERED: Ondansetron PF 4 MG/2 ML Vial IVP PRN (21:22)
[2021-10-11] MEDS ORDERED: Acetaminophen 325 MG TAB PO PRN (21:22)
[2021-10-11] MEDS ORDERED: Dextrose 5% in Water 1,000 ML IV PRN (22:21)
[2021-10-11] MEDS ORDERED: HumaLOG 300 UNITS/3 ML VIAL SC PRN ×2 (22:21)
[2021-10-11] MEDS ORDERED: Dextrose 50% Abboject 50 ML SYRINGE SLOW IVP PRN (22:21)
[2021-10-11] MEDS ORDERED: Lactated Ringer's 1,000 ML IV SCH (22:30)
[2021-10-11 22:49] LABS: Troponin I 0.015 ng/mL (< 0.028)
[2021-10-12 03:03] LABS: #Eosinphils 0.1 thou/uL (0.0-0.7); #Lymphocytes 1.2 thou/uL (1.20-3.40); #Monocytes 0.5 thou/uL (0.11-0.59); #Neutrophils 6.1 thou/uL (1.40-6.50); %Basophils 0.5 % (0.0-1.0); %Eosinophils 1.6 % (0.0-10.0); %Lymphocytes 15.3 % (21.0-51.0); %Monocytes 6.7 % (0.0-10.0); %Neutrophils 75.9 % (42.0-75.0); Hemoglobin 10.1 g/dL (14.0-18.0); Mean Corpuscular HGB CONC 33.6 g/dL (32.0-36.0); Mean Corpuscular Hemoglobin 33.2 pg (27.0-31.0); Mean Corpuscular Volume 98.9 fL (78.0-98.0); Mean Platelet Volume 8.2 fL (7.4-10.4); Platelet Count 112 thou/uL (130-400); Platelet Morphology Comment Appears Adequate; RBC Distribution Width 13.7 % (11.5-14.5); Red Blood Cell (RBC) Count 3.05 mill/uL (4.70-6.10)
[2021-10-12 03:14] LABS: Anion Gap 11 mmol/L (10-20); BUN (Urea Nitrogen) 20 mg/dL (8.4-25.7); Calc. Creatinine Clearance 55 mL/min (70-130); Calcium 9.1 mg/dL (7.8-10.44); Carbon Dioxide 26 mmol/L (23-31); Chloride 106 mmol/L (98-107); Estimated GFR 53; Glucose 125 mg/dL (83-110); Potassium 3.8 mmol/L (3.5-5.1); Sodium 139 mmol/L (136-145)
[2021-10-12 04:11] LABS: Bacteria/HPF None Seen HPF (None Seen); Bilirubin Negative (Negative); Blood, Urine Negative (Negative); Clarity Clear (Clear); Glucose, Urine (Dipstick) Normal (Negative); Ketone, Urine Negative (Negative); Leukocyte Negative Leu/uL (Negative); Nitrite Negative (Negative); Protein, Urine (Dipstick) Negative (Neg-Trace); RBC/HPF 0-3 HPF (0-3); Specific Gravity, Urine 1.015 (1.002-1.036); Squamous Epithelial 0-3 HPF (0-3); Urobilinogen Normal mg/dL (Less than 2); WBC/HPF 0-3 HPF (0-3)
[2021-10-12] MEDS ORDERED: Lisinopril 10 MG TAB PO SCH (09:00)
[2021-10-12] MEDS ORDERED: Famotidine 20 MG TAB PO SCH (09:00)
[2021-10-12 09:06] LABS: Troponin I 0.021 ng/mL (< 0.028)
[2021-10-12] MEDS: Lisinopril 2.5 MG TAB PO SCH (10:38)
[2021-10-12] MEDS: buPROPion HCl 100 MG TAB PO SCH (10:39)
[2021-10-12] MEDS: Cyanocobalamin (Vitamin B-12) 1,000 MCG TAB PO SCH (10:40)
[2021-10-12] MEDS: Aspirin 81 mg Enteric Coated Tablet PO SCH (10:40)
[2021-10-12] MEDS: Cholecalciferol (Vitamin D3) 400 UNITS TAB PO SCH (10:40)
[2021-10-12] MEDS: Heparin 5,000 UNITS/ML VIAL SC SCH ×2 (12:12→20:33)
[2021-10-12] MEDS: Ezetimibe 10 MG TAB PO SCH (20:32)
[2021-10-12] MEDS: Tamsulosin HCl 0.4 MG CAP PO SCH (20:33)
[2021-10-12] MEDS: Atorvastatin Calcium 40 MG TAB PO SCH (20:33)
[2021-10-13 06:58] LABS: Anion Gap 10 mmol/L (10-20); BUN (Urea Nitrogen) 15 mg/dL (8.4-25.7); Calc. Creatinine Clearance 70 mL/min (70-130); Calcium 9.2 mg/dL (7.8-10.44); Carbon Dioxide 29 mmol/L (23-31); Chloride 108 mmol/L (98-107); Estimated GFR 70; Glucose 119 mg/dL (83-110); Potassium 3.7 mmol/L (3.5-5.1); Sodium 143 mmol/L (136-145)
[2021-10-13] MEDS: Lisinopril 2.5 MG TAB PO SCH (09:37)
[2021-10-13] MEDS: Cyanocobalamin (Vitamin B-12) 1,000 MCG TAB PO SCH (09:38)
[2021-10-13] MEDS: Famotidine 20 MG TAB PO SCH ×2 (09:38→20:45)
[2021-10-13] MEDS: Donepezil HCl 10 MG TAB PO SCH (09:38)
[2021-10-13] MEDS: Cholecalciferol (Vitamin D3) 400 UNITS TAB PO SCH (09:39)
[2021-10-13] MEDS: Aspirin 81 mg Enteric Coated Tablet PO SCH (09:39)
[2021-10-13] MEDS: Heparin 5,000 UNITS/ML VIAL SC SCH ×2 (09:39→20:49)
[2021-10-13] MEDS: buPROPion HCl 100 MG TAB PO SCH (09:41)
[2021-10-13] MEDS: HYDROcodone/Acetaminophen 5/325 mg Tablet PO PRN (09:44)
[2021-10-13] MEDS: Atorvastatin Calcium 40 MG TAB PO SCH (20:44)
[2021-10-13] MEDS: Ezetimibe 10 MG TAB PO SCH (20:44)
[2021-10-13] MEDS: Tamsulosin HCl 0.4 MG CAP PO SCH (20:44)
[2021-10-14] MEDS: Famotidine 20 MG TAB PO SCH ×2 (09:40→21:57)
[2021-10-14] MEDS: Cyanocobalamin (Vitamin B-12) 1,000 MCG TAB PO SCH (09:40)
[2021-10-14] MEDS: Aspirin 81 mg Enteric Coated Tablet PO SCH (09:40)
[2021-10-14] MEDS: buPROPion HCl 100 MG TAB PO SCH (09:40)
[2021-10-14] MEDS: Cholecalciferol (Vitamin D3) 400 UNITS TAB PO SCH (09:40)
[2021-10-14] MEDS: Donepezil HCl 10 MG TAB PO SCH (09:41)
[2021-10-14] MEDS: Heparin 5,000 UNITS/ML VIAL SC SCH ×2 (09:41→21:56)
[2021-10-14] MEDS: HYDROcodone/Acetaminophen 5/325 mg Tablet PO PRN (21:56)
[2021-10-14] MEDS: Tamsulosin HCl 0.4 MG CAP PO SCH (21:57)
[2021-10-14] MEDS: Ezetimibe 10 MG TAB PO SCH (21:57)
[2021-10-14] MEDS: Atorvastatin Calcium 40 MG TAB PO SCH (21:57)
[2021-10-15 07:02] LABS: #Eosinphils 0.1 thou/uL (0.0-0.7); #Monocytes 0.4 thou/uL (0.11-0.59); #Neutrophils 3.8 thou/uL (1.40-6.50); %Basophils 0.9 % (0.0-1.0); %Eosinophils 2.4 % (0.0-10.0); %Lymphocytes 18.3 % (21.0-51.0); %Monocytes 7.5 % (0.0-10.0); %Neutrophils 70.8 % (42.0-75.0); Hemoglobin 9.5 g/dL (14.0-18.0); Mean Platelet Volume 8.2 fL (7.4-10.4); Platelet Count 127 thou/uL (130-400); Red Blood Cell (RBC) Count 2.98 mill/uL (4.70-6.10); White Blood Cell (WBC) Count 5.4 thou/uL (4.8-10.8)
[2021-10-15 07:20] LABS: Anion Gap 12 mmol/L (10-20); BUN (Urea Nitrogen) 17 mg/dL (8.4-25.7); Calc. Creatinine Clearance 64 mL/min (70-130); Calcium 9.1 mg/dL (7.8-10.44); Carbon Dioxide 27 mmol/L (23-31); Chloride 108 mmol/L (98-107); Estimated GFR 63; Glucose 125 mg/dL (83-110); Potassium 3.5 mmol/L (3.5-5.1); Sodium 143 mmol/L (136-145)
[2021-10-15] MEDS: Heparin 5,000 UNITS/ML VIAL SC SCH ×2 (09:07→21:41)
[2021-10-15] MEDS: buPROPion HCl 100 MG TAB PO SCH (09:09)
[2021-10-15] MEDS: Cholecalciferol (Vitamin D3) 400 UNITS TAB PO SCH (09:10)
[2021-10-15] MEDS: Aspirin 81 mg Enteric Coated Tablet PO SCH (09:10)
[2021-10-15] MEDS: Famotidine 20 MG TAB PO SCH ×2 (09:10→21:41)
[2021-10-15] MEDS: Cyanocobalamin (Vitamin B-12) 1,000 MCG TAB PO SCH (09:10)
[2021-10-15] MEDS: Donepezil HCl 10 MG TAB PO SCH (09:10)
[2021-10-15] MEDS: risperiDONE 1 MG TAB PO SCH (21:41)
[2021-10-15] MEDS: Atorvastatin Calcium 40 MG TAB PO SCH (21:41)
[2021-10-15] MEDS: Ezetimibe 10 MG TAB PO SCH (21:41)
[2021-10-15] MEDS: Tamsulosin HCl 0.4 MG CAP PO SCH (21:41)
[2021-10-16] MEDS: Aspirin 81 mg Enteric Coated Tablet PO SCH (09:48)
[2021-10-16] MEDS: Heparin 5,000 UNITS/ML VIAL SC SCH ×2 (09:49→20:44)
[2021-10-16] MEDS: buPROPion HCl 100 MG TAB PO SCH (09:49)
[2021-10-16] MEDS: Donepezil HCl 10 MG TAB PO SCH (09:49)
[2021-10-16] MEDS: Famotidine 20 MG TAB PO SCH ×2 (09:49→20:44)
[2021-10-16] MEDS: Cyanocobalamin (Vitamin B-12) 1,000 MCG TAB PO SCH (09:49)
[2021-10-16] MEDS: Cholecalciferol (Vitamin D3) 400 UNITS TAB PO SCH (09:49)
[2021-10-16] MEDS: Atorvastatin Calcium 40 MG TAB PO SCH (20:44)
[2021-10-16] MEDS: Ezetimibe 10 MG TAB PO SCH (20:44)
[2021-10-16] MEDS ORDERED: Sterile Water 10 ML VIAL FS PRN (20:45)
[2021-10-16] MEDS ORDERED: OLANZapine 10 MG VIAL IM SCH ×2 (20:45→22:00)
[2021-10-16] MEDS: risperiDONE 1 MG TAB PO SCH (20:45)
[2021-10-16] MEDS: Tamsulosin HCl 0.4 MG CAP PO SCH (20:45)
[2021-10-17] MEDS ORDERED: Sterile Water 10 ML VIAL FS PRN (00:45)
[2021-10-17] MEDS ORDERED: Ziprasidone 20 MG VIAL IM SCH (00:45)
[2021-10-17] MEDS ORDERED: Metoprolol Tartrate 5 MG/5 ML VIAL IVP SCH (07:00)
[2021-10-17] MEDS ORDERED: Benztropine 1 MG TAB PO SCH (09:00)
[2021-10-17] MEDS: Cyanocobalamin (Vitamin B-12) 1,000 MCG TAB PO SCH (10:09)
[2021-10-17] MEDS: Aspirin 81 mg Enteric Coated Tablet PO SCH (10:09)
[2021-10-17] MEDS: Famotidine 20 MG TAB PO SCH ×2 (10:09→20:10)
[2021-10-17] MEDS: Cholecalciferol (Vitamin D3) 400 UNITS TAB PO SCH (10:09)
[2021-10-17] MEDS: buPROPion HCl 100 MG TAB PO SCH (10:12)
[2021-10-17] MEDS: Heparin 5,000 UNITS/ML VIAL SC SCH ×2 (10:24→20:11)
[2021-10-17] MEDS ORDERED: Lorazepam 1 MG TAB PO PRN (15:04)
[2021-10-17 15:59] LABS: #Eosinphils 0.1 thou/uL (0.0-0.7); #Lymphocytes 0.8 thou/uL (1.20-3.40); #Monocytes 0.5 thou/uL (0.11-0.59); #Neutrophils 5.1 thou/uL (1.40-6.50); %Basophils 0.5 % (0.0-1.0); %Eosinophils 1.9 % (0.0-10.0); %Lymphocytes 12.2 % (21.0-51.0); %Monocytes 7.8 % (0.0-10.0); %Neutrophils 77.6 % (42.0-75.0); Hemoglobin 10.3 g/dL (14.0-18.0); Mean Corpuscular Hemoglobin 32.9 pg (27.0-31.0); Mean Corpuscular Volume 99.5 fL (78.0-98.0); Mean Platelet Volume 7.7 fL (7.4-10.4); Platelet Count 151 thou/uL (130-400); RBC Distribution Width 14.9 % (11.5-14.5); Red Blood Cell (RBC) Count 3.12 mill/uL (4.70-6.10); White Blood Cell (WBC) Count 6.6 thou/uL (4.8-10.8)
[2021-10-17 16:24] LABS: ALT (SGPT) 38 U/L (8-55); AST (SGOT) 45 U/L (5-34); Albumin 3.4 g/dL (3.4-4.8); Alkaline Phosphatase 121 U/L (40-110); Anion Gap 12 mmol/L (10-20); BUN (Urea Nitrogen) 16 mg/dL (8.4-25.7); Bilirubin, Total 2.4 mg/dL (0.2-1.2); Calc. Creatinine Clearance 62 mL/min (70-130); Calcium 9.4 mg/dL (7.8-10.44); Carbon Dioxide 28 mmol/L (23-31); Chloride 110 mmol/L (98-107); Estimated GFR 61; Globulin 2.7 g/dL (2.4-3.5); Glucose 133 mg/dL (83-110); Potassium 3.7 mmol/L (3.5-5.1); Protein, Total 6.1 g/dL (5.8-8.1); Sodium 146 mmol/L (136-145)
[2021-10-17] MEDS: Ezetimibe 10 MG TAB PO SCH (20:09)
[2021-10-17] MEDS: Tamsulosin HCl 0.4 MG CAP PO SCH (20:10)
[2021-10-17] MEDS: Atorvastatin Calcium 40 MG TAB PO SCH (20:11)
[2021-10-17] MEDS ORDERED: Ziprasidone 20 MG CAP PO SCH (21:00)
[2021-10-17] MEDS ORDERED: Temazepam 15 MG CAP PO SCH (21:00)
[2021-10-18] MEDS ORDERED: Amiodarone 200 MG TAB PO SCH (09:00)
[2021-10-18] MEDS: Heparin 5,000 UNITS/ML VIAL SC SCH ×2 (09:06→21:23)
[2021-10-18] MEDS: Cyanocobalamin (Vitamin B-12) 1,000 MCG TAB PO SCH (09:06)
[2021-10-18] MEDS: Cholecalciferol (Vitamin D3) 400 UNITS TAB PO SCH (09:06)
[2021-10-18] MEDS: Famotidine 20 MG TAB PO SCH ×2 (09:06→21:22)
[2021-10-18] MEDS: Aspirin 81 mg Enteric Coated Tablet PO SCH (09:07)
[2021-10-18] MEDS: buPROPion HCl 100 MG TAB PO SCH (12:27)
[2021-10-18] MEDS: Lactated Ringer's 1,000 ML IV SCH (18:12)
[2021-10-18] MEDS: Ezetimibe 10 MG TAB PO SCH (21:22)
[2021-10-18] MEDS: Atorvastatin Calcium 40 MG TAB PO SCH (21:22)
[2021-10-18] MEDS: Tamsulosin HCl 0.4 MG CAP PO SCH (21:24)
[2021-10-19 06:13] LABS: #Eosinphils 0.1 thou/uL (0.0-0.7); #Monocytes 0.6 thou/uL (0.11-0.59); #Neutrophils 4.3 thou/uL (1.40-6.50); %Basophils 0.4 % (0.0-1.0); %Eosinophils 1.8 % (0.0-10.0); %Lymphocytes 16.6 % (21.0-51.0); %Monocytes 9.8 % (0.0-10.0); %Neutrophils 71.3 % (42.0-75.0); Hemoglobin 10.3 g/dL (14.0-18.0); Mean Corpuscular HGB CONC 32.5 g/dL (32.0-36.0); Mean Corpuscular Hemoglobin 32.8 pg (27.0-31.0); Mean Platelet Volume 8.1 fL (7.4-10.4); Platelet Count 143 thou/uL (130-400); RBC Distribution Width 15.2 % (11.5-14.5); Red Blood Cell (RBC) Count 3.15 mill/uL (4.70-6.10); White Blood Cell (WBC) Count 6.1 thou/uL (4.8-10.8)
[2021-10-19 06:36] LABS: Anion Gap 13 mmol/L (10-20); BUN (Urea Nitrogen) 19 mg/dL (8.4-25.7); Calc. Creatinine Clearance 65 mL/min (70-130); Calcium 9.3 mg/dL (7.8-10.44); Carbon Dioxide 24 mmol/L (23-31); Chloride 110 mmol/L (98-107); Estimated GFR 65; Glucose 104 mg/dL (83-110); Potassium 3.9 mmol/L (3.5-5.1); Sodium 143 mmol/L (136-145)
[2021-10-19] MEDS: Lactated Ringer's 1,000 ML IV SCH ×2 (09:13→20:02)
[2021-10-19] MEDS: Heparin 5,000 UNITS/ML VIAL SC SCH ×2 (09:17→20:02)
[2021-10-19] MEDS: Cyanocobalamin (Vitamin B-12) 1,000 MCG TAB PO SCH (09:17)
[2021-10-19] MEDS: Famotidine 20 MG TAB PO SCH ×2 (09:17→20:02)
[2021-10-19] MEDS: Aspirin 81 mg Enteric Coated Tablet PO SCH (09:17)
[2021-10-19] MEDS: Cholecalciferol (Vitamin D3) 400 UNITS TAB PO SCH (09:17)
[2021-10-19] MEDS ORDERED: Docusate 100 MG CAP PO SCH (13:30)
[2021-10-19] MEDS: Atorvastatin Calcium 40 MG TAB PO SCH (20:02)
[2021-10-19] MEDS: Ezetimibe 10 MG TAB PO SCH (20:02)
[2021-10-19] MEDS: Tamsulosin HCl 0.4 MG CAP PO SCH (20:03)
[2021-10-20] MEDS ORDERED: Docusate 100 MG CAP PO SCH (09:00)
[2021-10-20] MEDS: Cholecalciferol (Vitamin D3) 400 UNITS TAB PO SCH (10:21)
[2021-10-20] MEDS: Famotidine 20 MG TAB PO SCH (10:22)
[2021-10-20] MEDS: Cyanocobalamin (Vitamin B-12) 1,000 MCG TAB PO SCH (10:23)
[2021-10-20] MEDS: Heparin 5,000 UNITS/ML VIAL SC SCH (10:23)
[2021-10-20] MEDS: Lactated Ringer's 1,000 ML IV SCH (10:24)
[2021-10-20] MEDS: Aspirin 81 mg Enteric Coated Tablet PO SCH (10:25)
[2021-10-20 16:18] VITALS: BP 101/70; TEMP 97.4
== END 2021-10-20 16:10 | disposition hospice, home (50) | DRG 884 ==
LOC: 2NO 17:38 → OBSVTOIN 21:13 → 2NO 10-13 23:13 → T4-A 10-17 15:17
PROVIDERS: ADMIT Internal Medicine Geriatric Medicine; ATTEND Internal Medicine Geriatric Medicine
DX: F03.90 Unspecified dementia, unspecified severity, without behavioral disturbance, psychotic disturbance, mood disturbance, and anxiety (principal); G93.41 Metabolic encephalopathy; I47.2 Ventricular tachycardia; K92.2 Gastrointestinal hemorrhage, unspecified; F05 Delirium due to known physiological condition; G93.40 Encephalopathy, unspecified; I48.19 Other persistent atrial fibrillation; I95.9 Hypotension, unspecified; R55 Syncope and collapse; Z20.822 Contact with and (suspected) exposure to COVID-19; Z66 Do not resuscitate; I25.10 Atherosclerotic heart disease of native coronary artery without angina pectoris; N40.0 Benign prostatic hyperplasia without lower urinary tract symptoms; E78.5 Hyperlipidemia, unspecified; W19.XXXA Unspecified fall, initial encounter; S01.01XA Laceration without foreign body of scalp, initial encounter; S51.012A Laceration without foreign body of left elbow, initial encounter; S51.011A Laceration without foreign body of right elbow, initial encounter; N18.30 Chronic kidney disease, stage 3 unspecified; E11.22 Type 2 diabetes mellitus with diabetic chronic kidney disease; I45.10 Unspecified right bundle-branch block; E78.00 Pure hypercholesterolemia, unspecified; F17.210 Nicotine dependence, cigarettes, uncomplicated; F29 Unspecified psychosis not due to a substance or known physiological condition; E78.2 Mixed hyperlipidemia; Z95.5 Presence of coronary angioplasty implant and graft; Z95.1 Presence of aortocoronary bypass graft; Z79.01 Long term (current) use of anticoagulants; Z79.899 Other long term (current) drug therapy; Z79.82 Long term (current) use of aspirin
CPT/HCPCS: 36415; 36416; 70450; 80048; 80053; 81001; 83735; 83880; 84484; 85025; 93005; 93010; 93306; G0378; J1644; J1815; J2358; J3486; J7120